=== PATIENT | male | born 1965 | race Caucasian/White ===

== ENCOUNTER 2019-07-23 09:45 | Observation (INO) ==
[2019-07-23] MEDS ORDERED: Gadolinium Contrast Agent (WT Based) IV PRN (11:04)
[2019-07-23 11:20] LABS: Bilirubin,Urine Negative (Negative); Blood,Urine Moderate (Negative); Clarity,Urine Cloudy (Clear); Color,Urine Yellow (Yellow); Glucose,Urine (UA) Normal (Normal); Ketones,Urine Negative (Negative); Leukocyte Esterase,Urine Large (Negative); Nitrite,Urine Negative (Negative); Protein,Urine 30 mg/dL (Neg-Trace); Specific Gravity,Urine 1.011 (1.010-1.025); Urobilinogen,Urine Normal (Normal)
[2019-07-23 11:23] LABS: Bacteria,Urine Few per hpf (None-Few); Hyaline Casts,Urine None Seen per lpf (None-Few); Squamous Epithelial Cell,Urine Few per lpf (None-Few); WBC,Urine TNTC per hpf (0-3)
[2019-07-23 11:31] LABS: Hematocrit 32.9 % (37.5-50.1); Hemoglobin 10.8 g/dL (12.9-16.9); Mean Corpuscular HGB Conc 32.8 g/dL (31.6-35.5); Mean Corpuscular Hemoglobin 30.4 pg (28.0-33.3); Mean Corpuscular Volume 92.7 fL (83.0-100.0); Mean Platelet Volume 9.5 fL (9.4-12.4); Platelet Count 264 K/mcL (140-400); Red Blood Count 3.55 M/mcL (4.19-5.50); Red Cell Distribution Width 14.6 % (11.5-14.5); White Blood Count 10.9 K/mcL (4.3-11.1)
[2019-07-23 12:08] LABS: Albumin 3.7 g/dL (3.5-5.7); Bilirubin,Direct 0.1 mg/dL (0.0-0.2); Bilirubin,Indirect 0.2 mg/dL (0.0-1.0); Bilirubin,Total 0.3 mg/dL (0.3-1.0); Globulin 3.6 g/dL (2.4-3.5); Total Protein 7.3 g/dL (6.4-8.9)
[2019-07-23] MEDS ORDERED: cefTRIAXone 2,000 MG in 0.9 % Sodium Chloride Mini Bag 100 ML IVPB ONE (12:11)
[2019-07-23] MEDS ORDERED: 0.9 % Sodium Chloride 2,000 ML ONE (12:56)
[2019-07-23] MEDS: 0.9 % Sodium Chloride 1,000 ML IVC SCH ×3 (13:48→16:59)
[2019-07-23] MEDS ORDERED: Naloxone 0.4 MG/ML INJ IVP PRN (15:29)
[2019-07-23] MEDS ORDERED: Ondansetron 4 MG/2 ML VIAL IVP PRN (15:29)
[2019-07-23 15:56] LABS: INR 1.1; Prothrombin Time 12.5 Seconds (9.4-12.1)
[2019-07-23] MEDS ORDERED: Acetaminophen 325 MG TABLET PO ONE (17:52)
[2019-07-23] MEDS ORDERED: TAZOBACTAM IVPB SCH (18:00)
[2019-07-23] MEDS ORDERED: PIPERACILLIN IVPB SCH (18:00)
[2019-07-23] MEDS ORDERED: SODIUM CHLORIDE 0.9% IVPB SCH (18:00)
[2019-07-23] MEDS ORDERED: *HR* OxyCODONE Immed Rel 5 MG TABLET PO PRN (20:31)
[2019-07-23] MEDS ORDERED: *HR* HYDROmorphone (PF) 1 MG/ML SYRINGE IVP ONE (20:38)
[2019-07-23] MEDS ORDERED: Acetaminophen 325 MG TABLET PO PRN (20:40)
[2019-07-23 21:31] LABS: Amphetamine Screen,Urine Positive ng/mL (Cutoff=1000); Barbiturate Screen,Urine Negative ng/mL (Cutoff=200); Benzodiazepines Screen,Urine Negative ng/mL (Cutoff=200); Cannabinoid Screen,Urine Negative ng/mL (Cutoff = 50); Cocaine Screen,Urine Negative ng/mL (Cutoff= 300); Opiate Screen,Urine Negative ng/mL (Cutoff=300); Phencyclidine Screen,Urine Negative ng/mL (Cutoff=25)
[2019-07-24] MEDS: 0.9 % Sodium Chloride 1,000 ML IVC SCH (03:00)
[2019-07-24 04:35] LABS: Basophils % 0.3 %; Eosinophils # 0.3 K/mcL (0.0-0.6); Eosinophils % 2.7 %; Hematocrit 33.9 % (37.5-50.1); Immature Granulocytes % 0.2 % (0-4); Lymphocytes # 1.8 K/mcL (0.6-4.6); Lymphocytes % 19.8 %; Mean Corpuscular HGB Conc 32.4 g/dL (31.6-35.5); Mean Corpuscular Volume 92.4 fL (83.0-100.0); Mean Platelet Volume 9.8 fL (9.4-12.4); Monocytes # 1.3 K/mcL (0.0-1.3); Neutrophils # 5.8 K/mcL (1.6-8.9); Platelet Count 271 K/mcL (140-400); Red Blood Count 3.67 M/mcL (4.19-5.50); Red Cell Distribution Width 14.8 % (11.5-14.5); White Blood Count 9.2 K/mcL (4.3-11.1)
[2019-07-24 04:55] LABS: BUN/Creatinine Ratio 16 (6-26); Blood Urea Nitrogen 22 mg/dL (6-20); Calcium 8.4 mg/dL (8.6-10.3); Carbon Dioxide 26 mEq/L (23-29); Chloride 111 mEq/L (98-107); Glucose 76 mg/dL (70-105); Osmolality,Calculated 298 (280-300); Potassium 4.2 mEq/L (3.5-5.1); Sodium 143 mEq/L (136-145); eGFR For African Americans > 60 (> 60); eGFR For Non-African Americans 55 (> 60)
[2019-07-24] MEDS ORDERED: Nicotine 21 MG PATCH.TD24 TD SCH (10:30)
[2019-07-24 11:52] VITALS: BP 126/73
[2019-07-24] MEDS ORDERED: 0.9 % Sodium Chloride 1,000 ML IVC SCH (12:45)
== END 2019-07-24 15:22 | disposition left against medical advice (07) ==
LOC: EMEROOARM 09:45 → 2ANU 09:45 → SUATTDRO 15:29 → 2ANU 16:04
PROVIDERS: ADMIT Internal Medicine; ATTEND Internal Medicine

== ENCOUNTER 2019-08-10 22:13 | Observation (INO) ==
[2019-08-10] MEDS ORDERED: Isovue-370 500 ML BOTTLE IVP ONE (22:26)
[2019-08-10 23:04] LABS: Basophils % 0.2 %; Eosinophils # 0.2 K/mcL (0.0-0.6); Eosinophils % 1.7 %; Hematocrit 34.7 % (37.5-50.1); Hemoglobin 11.4 g/dL (12.9-16.9); Immature Granulocytes % 0.3 % (0-4); Lymphocytes # 1.3 K/mcL (0.6-4.6); Mean Corpuscular HGB Conc 32.9 g/dL (31.6-35.5); Mean Corpuscular Hemoglobin 29.8 pg (28.0-33.3); Mean Corpuscular Volume 90.8 fL (83.0-100.0); Mean Platelet Volume 9.5 fL (9.4-12.4); Monocytes # 1.3 K/mcL (0.0-1.3); Monocytes % 11.5 %; Neutrophils # 8.7 K/mcL (1.6-8.9); Platelet Count 282 K/mcL (140-400); Red Blood Count 3.82 M/mcL (4.19-5.50); Red Cell Distribution Width 14.5 % (11.5-14.5); Segmented Neutrophils % 75.3 %; White Blood Count 11.5 K/mcL (4.3-11.1)
[2019-08-10 23:21] LABS: Albumin 3.8 g/dL (3.5-5.7); Bilirubin,Direct 0.1 mg/dL (0.0-0.2); Bilirubin,Indirect 0.3 mg/dL (0.0-1.0); Bilirubin,Total 0.4 mg/dL (0.3-1.0); Calcium 8.8 mg/dL (8.6-10.3); Globulin 3.8 g/dL (2.4-3.5); Potassium 4.1 mEq/L (3.5-5.1); Total Protein 7.6 g/dL (6.4-8.9)
[2019-08-11 00:56] LABS: Bilirubin,Urine Negative (Negative); Blood,Urine Small (Negative); Clarity,Urine Cloudy (Clear); Color,Urine Dark Yellow (Yellow); Glucose,Urine (UA) Normal (Normal); Ketones,Urine Negative (Negative); Leukocyte Esterase,Urine Large (Negative); Nitrite,Urine Positive (Negative); Protein,Urine Negative (Neg-Trace); Urobilinogen,Urine Normal (Normal)
[2019-08-11 00:59] LABS: Bacteria,Urine None Seen per hpf (None-Few); Hyaline Casts,Urine None Seen per lpf (None-Few); Squamous Epithelial Cell,Urine Many per lpf (None-Few); WBC,Urine 30-50 per hpf (0-3)
[2019-08-11] MEDS ORDERED: Acetaminophen 325 MG TABLET PO PRN (02:29)
[2019-08-11] MEDS ORDERED: Naloxone 0.4 MG/ML INJ IVP PRN (02:29)
[2019-08-11] MEDS ORDERED: Ondansetron 4 MG/2 ML VIAL IVP PRN (02:29)
[2019-08-11] MEDS ORDERED: 0.9 % Sodium Chloride 1,000 ML IVC SCH (03:45)
[2019-08-11 04:01] LABS: Basophils % 0.4 %; Eosinophils # 0.3 K/mcL (0.0-0.6); Eosinophils % 3.2 %; Hematocrit 34.7 % (37.5-50.1); Hemoglobin 11.9 g/dL (12.9-16.9); Immature Granulocytes % 0.2 % (0-4); Lymphocytes # 1.7 K/mcL (0.6-4.6); Lymphocytes % 17.1 %; Mean Corpuscular HGB Conc 34.3 g/dL (31.6-35.5); Mean Corpuscular Hemoglobin 31.3 pg (28.0-33.3); Mean Corpuscular Volume 91.3 fL (83.0-100.0); Mean Platelet Volume 9.4 fL (9.4-12.4); Monocytes # 1.6 K/mcL (0.0-1.3); Monocytes % 15.6 %; Neutrophils # 6.5 K/mcL (1.6-8.9); Platelet Count 260 K/mcL (140-400); Red Cell Distribution Width 14.6 % (11.5-14.5); Segmented Neutrophils % 63.5 %; White Blood Count 10.2 K/mcL (4.3-11.1)
[2019-08-11 04:08] LABS: Magnesium 2.7 mg/dL (1.6-2.6)
[2019-08-11] MEDS ORDERED: Ringers Solution, Lactated 1,000 ML IVC ONE (07:30)
[2019-08-11] MEDS: cefTRIAXone 2,000 MG in Water for inj. (sterile) 20 ML IVP SCH (08:12)
[2019-08-11] MEDS ORDERED: cefTRIAXone 1,000 MG in 0.9 % Sodium Chloride Mini Bag 100 ML IVPB SCH (09:00)
[2019-08-11] MEDS: polyethylene glycoL 3350 17 GM POWD.PACK PO SCH ×2 (10:50→21:25)
[2019-08-12 02:37] LABS: Hematocrit 34.7 % (37.5-50.1); Hemoglobin 11.4 g/dL (12.9-16.9); Mean Corpuscular HGB Conc 32.9 g/dL (31.6-35.5); Mean Corpuscular Hemoglobin 29.8 pg (28.0-33.3); Mean Corpuscular Volume 90.8 fL (83.0-100.0); Mean Platelet Volume 9.8 fL (9.4-12.4); Platelet Count 282 K/mcL (140-400); Red Blood Count 3.82 M/mcL (4.19-5.50); Red Cell Distribution Width 14.3 % (11.5-14.5); White Blood Count 6.1 K/mcL (4.3-11.1)
[2019-08-12 02:57] LABS: Calcium 8.5 mg/dL (8.6-10.3); Potassium 4.6 mEq/L (3.5-5.1)
[2019-08-12] MEDS: cefTRIAXone 2,000 MG in Water for inj. (sterile) 20 ML IVP SCH (08:38)
[2019-08-12] MEDS: polyethylene glycoL 3350 17 GM POWD.PACK PO SCH (08:41)
[2019-08-12] MEDS ORDERED: *HR* Buprenorphine HCl 8 MG TAB.SUBL SL SCH (09:00)
[2019-08-12 10:30] VITALS: BP 151/82
[2019-08-12 20:30] LABS: Barbiturates NEGATIVE ng/mL (Cutoff 75); Benzodiazepines NEGATIVE ng/mL (Cutoff 75); Cocaine NEGATIVE ng/mL (Cutoff 30); Methadone NEGATIVE ng/mL (Cutoff 40); Opiates NEGATIVE ng/mL (Cutoff 30); Phencyclidine NEGATIVE ng/mL (Cutoff 15)
[2019-08-13 10:17] LABS: Amphetamines POSITIVE ng/mL (Cutoff 30); Buprenorphine POSITIVE ng/mL (Cutoff 1); Methamphetamines POSITIVE ng/mL (Cutoff 30)
[2019-08-15 07:34] LABS: Buprenorphine <1.0 ng/mL
[2019-08-18 00:35] LABS: Methylenedioxyamphetamine <20 ng/mL; Methylenedioxymethamphetamine <20 ng/mL
[2019-08-18 06:52] LABS: Methamphetamine Confirmation 788 ng/mL; Methylenedioxyethylamphetamine <20 ng/mL
== END 2019-08-12 12:02 | disposition home or self-care (01) ==
LOC: EMEROOARM 22:13 → 2ANU 22:13
PROVIDERS: ADMIT Internal Medicine; ATTEND Internal Medicine

== ENCOUNTER 2019-09-05 17:26 | Observation (INO) ==
[2019-09-05 18:52] LABS: Bilirubin,Urine Negative (Negative); Blood,Urine Moderate (Negative); Clarity,Urine Cloudy (Clear); Color,Urine Yellow (Yellow); Glucose,Urine (UA) Normal (Normal); Ketones,Urine Negative (Negative); Leukocyte Esterase,Urine Large (Negative); Nitrite,Urine Negative (Negative); Protein,Urine Trace mg/dL (Neg-Trace); Urobilinogen,Urine Normal (Normal)
[2019-09-05 18:55] LABS: Bacteria,Urine None Seen per hpf (None-Few); Hyaline Casts,Urine None Seen per lpf (None-Few); Squamous Epithelial Cell,Urine Few per lpf (None-Few); WBC,Urine TNTC per hpf (0-3)
[2019-09-05 19:18] LABS: Albumin 3.6 g/dL (3.5-5.7); Bilirubin,Direct 0.1 mg/dL (0.0-0.2); Bilirubin,Indirect 0.2 mg/dL (0.0-1.0); Bilirubin,Total 0.3 mg/dL (0.3-1.0); Calcium 7.8 mg/dL (8.6-10.3); Globulin 3.7 g/dL (2.4-3.5); Potassium 7.5 mEq/L (3.5-5.1); Total Protein 7.3 g/dL (6.4-8.9)
[2019-09-05] MEDS ORDERED: *HR* Dextrose 50 % in Water (Syg) 50 ML SYRINGE IVP ONE (19:25)
[2019-09-05] MEDS ORDERED: Sodium Bicarbonate 50 MEQ/50 ML VIAL IVP ONE (19:25)
[2019-09-05] MEDS ORDERED: Insulin Human Regular 10 UNIT in 0.9 % Sodium Chloride 10 ML IV ONE (19:25)
[2019-09-05] MEDS ORDERED: Calcium Gluconate 1gm/50mL 1 GM/50 ML BAG IVPB PRN (19:27)
[2019-09-05] MEDS ORDERED: 0.9 % Sodium Chloride 1,000 ML IVC ONE (19:29)
[2019-09-05 20:10] LABS: Hematocrit 30.2 % (37.5-50.1); Mean Corpuscular HGB Conc 33.1 g/dL (31.6-35.5); Mean Corpuscular Hemoglobin 30.3 pg (28.0-33.3); Mean Corpuscular Volume 91.5 fL (83.0-100.0); Mean Platelet Volume 9.9 fL (9.4-12.4); Platelet Count 252 K/mcL (140-400); Red Cell Distribution Width 14.1 % (11.5-14.5); White Blood Count 12.4 K/mcL (4.3-11.1)
[2019-09-05] MEDS ORDERED: Naloxone 0.4 MG/ML INJ IVP PRN (21:48)
[2019-09-05] MEDS ORDERED: Dextrose Gel 15 GM/37.5 ML TUBE PO ONE (21:50)
[2019-09-05] MEDS ORDERED: 0.9 % Sodium Chloride 1,000 ML IVC SCH (22:00)
[2019-09-05] MEDS: SODIUM ZIRCONIUM CYCLOSILICATE 5 GM POWD.PACK PO SCH (22:05)
[2019-09-05] MEDS: Nicotine 21 MG PATCH.TD24 TD SCH (22:06)
[2019-09-05 22:12] LABS: Calcium 7.9 mg/dL (8.6-10.3); Potassium 5.8 mEq/L (3.5-5.1)
[2019-09-05 22:18] LABS: INR 1.3; Prothrombin Time 14.4 Seconds (9.4-12.1)
[2019-09-05 22:25] LABS: Sodium, Urine 73.2 mEq/L
[2019-09-05] MEDS: amLODIPine 5 MG TABLET PO SCH (22:31)
[2019-09-05] MEDS ORDERED: Ketorolac 15 MG/ML VIAL IVP ONE (23:08)
[2019-09-05] MEDS ORDERED: Acetaminophen 325 MG TABLET PO PRN (23:48)
[2019-09-06] MEDS ORDERED: levoFLOXacin 500 MG TABLET PO SCH (00:15)
[2019-09-06 00:33] LABS: Protein/Creatinine Ratio,Urine 0.59 mg/mg (0.00-0.20)
[2019-09-06] MEDS ORDERED: Doxycycline 200 MG in 0.9 % Sodium Chloride 100 ML IVPB ONE (00:43)
[2019-09-06 02:33] LABS: Bilirubin,Urine Negative (Negative); Blood,Urine Moderate (Negative); Clarity,Urine Clear (Clear); Color,Urine Yellow (Yellow); Glucose,Urine (UA) Normal (Normal); Ketones,Urine Negative (Negative); Leukocyte Esterase,Urine Moderate (Negative); Nitrite,Urine Negative (Negative); Protein,Urine Trace mg/dL (Neg-Trace); Urobilinogen,Urine Normal (Normal)
[2019-09-06 02:36] LABS: Bacteria,Urine None Seen per hpf (None-Few); Hyaline Casts,Urine None Seen per lpf (None-Few); RBC,Urine 15-30 per hpf (0-3); Squamous Epithelial Cell,Urine Many per lpf (None-Few); WBC,Urine 30-50 per hpf (0-3)
[2019-09-06 03:25] LABS: Basophils % 0.2 %; Eosinophils # 0.1 K/mcL (0.0-0.6); Hematocrit 27.5 % (37.5-50.1); Immature Granulocytes % 0.3 % (0-4); Lymphocytes % 7.8 %; Mean Corpuscular HGB Conc 32.7 g/dL (31.6-35.5); Mean Corpuscular Hemoglobin 29.9 pg (28.0-33.3); Mean Corpuscular Volume 91.4 fL (83.0-100.0); Monocytes # 0.5 K/mcL (0.0-1.3); Monocytes % 4.2 %; Neutrophils # 10.5 K/mcL (1.6-8.9); Platelet Count 251 K/mcL (140-400); Red Blood Count 3.01 M/mcL (4.19-5.50); Red Cell Distribution Width 14.2 % (11.5-14.5); Segmented Neutrophils % 86.5 %; White Blood Count 12.1 K/mcL (4.3-11.1)
[2019-09-06 03:37] LABS: Calcium 7.7 mg/dL (8.6-10.3); Potassium 6.5 mEq/L (3.5-5.1)
[2019-09-06 04:01] LABS: Chlamydia Trachomatis DNA Ur NOT DETECTED (Not Detect)
[2019-09-06] MEDS ORDERED: Calcium Gluconate 1gm/50mL 1 GM/50 ML BAG IVPB ONE (04:03)
[2019-09-06] MEDS ORDERED: Insulin Human Regular 5 UNIT in 0.9 % Sodium Chloride 10 ML IV ONE (04:03)
[2019-09-06] MEDS ORDERED: *HR* Dextrose 50 % in Water (Syg) 50 ML SYRINGE IVP ONE (04:03)
[2019-09-06] MEDS ORDERED: Doxycycline 100 MG CAPSULE PO SCH (09:00)
[2019-09-06 09:02] LABS: Calcium 8.3 mg/dL (8.6-10.3); Potassium 5.2 mEq/L (3.5-5.1)
[2019-09-06] MEDS: SODIUM ZIRCONIUM CYCLOSILICATE 5 GM POWD.PACK PO SCH (09:15)
[2019-09-06] MEDS: amLODIPine 5 MG TABLET PO SCH (09:15)
[2019-09-06] MEDS: Nicotine 21 MG PATCH.TD24 TD SCH (09:15)
[2019-09-06] MEDS: polyethylene glycoL 3350 17 GM POWD.PACK PO SCH (09:15)
[2019-09-06] MEDS: cefTRIAXone 2,000 MG in 0.9 % Sodium Chloride Mini Bag 100 ML IVPB SCH (09:15)
[2019-09-06] MEDS: *HR* Promethazine 25 MG/ML VIAL IVP PRN ×2 (09:56→19:28)
[2019-09-06] MEDS ORDERED: 0.9 % Sodium Chloride 1,000 ML IVC SCH (10:27)
[2019-09-06] MEDS: 0.9 % Sodium Chloride 1,000 ML IVC SCH ×2 (11:12→18:43)
[2019-09-06 13:05] LABS: Calcium 8.4 mg/dL (8.6-10.3); Potassium 5.4 mEq/L (3.5-5.1)
[2019-09-06 17:09] LABS: Calcium 8.3 mg/dL (8.6-10.3); Potassium 4.9 mEq/L (3.5-5.1)
[2019-09-06 22:15] LABS: Calcium 8.1 mg/dL (8.6-10.3)
[2019-09-07 01:11] LABS: Basophils % 0.3 %; Eosinophils # 0.3 K/mcL (0.0-0.6); Hematocrit 30.9 % (37.5-50.1); Immature Granulocytes % 0.3 % (0-4); Lymphocytes # 1.3 K/mcL (0.6-4.6); Lymphocytes % 15.5 %; Mean Corpuscular HGB Conc 32.4 g/dL (31.6-35.5); Mean Corpuscular Hemoglobin 29.5 pg (28.0-33.3); Mean Corpuscular Volume 91.2 fL (83.0-100.0); Mean Platelet Volume 9.7 fL (9.4-12.4); Monocytes # 0.8 K/mcL (0.0-1.3); Monocytes % 9.2 %; Neutrophils # 6.2 K/mcL (1.6-8.9); Platelet Count 282 K/mcL (140-400); Red Blood Count 3.39 M/mcL (4.19-5.50); Red Cell Distribution Width 14.2 % (11.5-14.5); Segmented Neutrophils % 71.7 %; White Blood Count 8.7 K/mcL (4.3-11.1)
[2019-09-07 01:31] LABS: Calcium 7.9 mg/dL (8.6-10.3); Potassium 4.3 mEq/L (3.5-5.1)
[2019-09-07 01:32] LABS: Uric Acid 3.9 mg/dL (2.3-7.6)
[2019-09-07] MEDS: 0.9 % Sodium Chloride 1,000 ML IVC SCH ×3 (03:00→11:33)
[2019-09-07] MEDS: polyethylene glycoL 3350 17 GM POWD.PACK PO SCH (08:20)
[2019-09-07] MEDS: SODIUM ZIRCONIUM CYCLOSILICATE 5 GM POWD.PACK PO SCH (08:20)
[2019-09-07] MEDS: Nicotine 21 MG PATCH.TD24 TD SCH (08:20)
[2019-09-07] MEDS: amLODIPine 5 MG TABLET PO SCH (08:20)
[2019-09-07] MEDS: cefTRIAXone 2,000 MG in 0.9 % Sodium Chloride Mini Bag 100 ML IVPB SCH (08:21)
[2019-09-07] MEDS: *HR* Promethazine 25 MG/ML VIAL IVP PRN (10:34)
[2019-09-07 12:20] VITALS: BP 168/107
[2019-09-07 17:32] LABS: HIV-1 Ab Supplemental NEGATIVE (Negative); HIV-2 Ab Supplemental NEGATIVE (Negative)
[2019-09-08] MEDS ORDERED: amLODIPine 5 MG TABLET PO SCH (09:00)
== END 2019-09-07 12:57 | disposition left against medical advice (07) ==
LOC: EMEROOARM 17:26 → 2ANU 17:26 → SUATTDRO 20:24 → 2ANU 20:55
PROVIDERS: ADMIT Internal Medicine; ATTEND Internal Medicine

== ENCOUNTER 2019-09-23 18:17 | Inpatient (IN) ==
[2019-09-23] MEDS ORDERED: Isovue-370 500 ML BOTTLE IVP ONE (18:26)
[2019-09-23 18:53] LABS: INR 1.1; Prothrombin Time 12.7 Seconds (9.4-12.1)
[2019-09-23 18:56] LABS: Activated Partial Thrombo Time 31.5 Seconds (26.0-36.0)
[2019-09-23 18:57] LABS: Basophils % 0.1 %; Eosinophils # 0.1 K/mcL (0.0-0.6); Eosinophils % 0.4 %; Hematocrit 29.6 % (37.5-50.1); Hemoglobin 9.9 g/dL (12.9-16.9); Immature Granulocytes % 0.4 % (0-4); Lymphocytes # 0.6 K/mcL (0.6-4.6); Lymphocytes % 5.1 %; Mean Corpuscular HGB Conc 33.4 g/dL (31.6-35.5); Mean Corpuscular Hemoglobin 30.3 pg (28.0-33.3); Mean Corpuscular Volume 90.5 fL (83.0-100.0); Mean Platelet Volume 9.7 fL (9.4-12.4); Monocytes # 1.1 K/mcL (0.0-1.3); Monocytes % 9.8 %; Neutrophils # 9.6 K/mcL (1.6-8.9); Platelet Count 245 K/mcL (140-400); Red Blood Count 3.27 M/mcL (4.19-5.50); Red Cell Distribution Width 13.8 % (11.5-14.5); Segmented Neutrophils % 84.2 %; White Blood Count 11.4 K/mcL (4.3-11.1)
[2019-09-23 19:59] LABS: Amphetamine Screen,Urine Negative ng/mL (Cutoff=1000); Barbiturate Screen,Urine Negative ng/mL (Cutoff=200); Benzodiazepines Screen,Urine Negative ng/mL (Cutoff=200); Cannabinoid Screen,Urine Negative ng/mL (Cutoff = 50); Cocaine Screen,Urine Negative ng/mL (Cutoff= 300); Opiate Screen,Urine Positive ng/mL (Cutoff=300); Phencyclidine Screen,Urine Negative ng/mL (Cutoff=25)
[2019-09-23] MEDS: Calcium Gluconate 1gm/50mL 1 GM/50 ML BAG IVPB SCH ×2 (19:59→20:57)
[2019-09-23 20:20] LABS: Alanine Aminotransferase 12 Units/L (7-52); Albumin 3.5 g/dL (3.5-5.7); Albumin/Globulin Ratio 0.9 (1.1-2.2); Alkaline Phosphatase 89 Units/L (34-104); Aspartate Amino Transferase 20 Units/L (13-39); BUN/Creatinine Ratio 11 (6-26); Bilirubin,Direct 0.1 mg/dL (0.0-0.2); Bilirubin,Indirect 0.2 mg/dL (0.0-1.0); Bilirubin,Total 0.3 mg/dL (0.3-1.0); Blood Urea Nitrogen 107 mg/dL (6-20); Calcium 7.9 mg/dL (8.6-10.3); Carbon Dioxide 16 mEq/L (23-29); Chloride 92 mEq/L (98-107); Globulin 3.9 g/dL (2.4-3.5); Glucose 87 mg/dL (70-105); Osmolality,Calculated 293 (280-300); Potassium 8.3 mEq/L (3.5-5.1); Sodium 125 mEq/L (136-145); Total Protein 7.4 g/dL (6.4-8.9); Troponin I < 0.03 ng/mL (< 0.04); eGFR For African Americans 7 (> 60); eGFR For Non-African Americans 6 (> 60)
[2019-09-23] MEDS ORDERED: 0.9 % Sodium Chloride 1,000 ML IVC ONE ×2 (20:25→22:34)
[2019-09-23] MEDS ORDERED: Sodium Bicarbonate 150 MEQ in D5% in Water 1,000 ML IVC SCH (20:30)
[2019-09-23] MEDS ORDERED: Sodium Bicarbonate 50 MEQ/50 ML VIAL IVP ONE (20:30)
[2019-09-23] MEDS ORDERED: Insulin Human Regular 10 UNIT in 0.9 % Sodium Chloride 10 ML IV ONE (20:30)
[2019-09-23] MEDS ORDERED: *HR* Dextrose 50 % in Water (Syg) 50 ML SYRINGE IVP ONE (20:30)
[2019-09-23] MEDS ORDERED: *HR* Dextrose 50 % in Water (Syg) 50 ML SYRINGE ONE (20:52)
[2019-09-23 20:59] LABS: Bilirubin,Urine Negative (Negative); Blood,Urine Large (Negative); Clarity,Urine Turbid (Clear); Color,Urine Yellow (Yellow); Glucose,Urine (UA) Normal (Normal); Ketones,Urine Negative (Negative); Leukocyte Esterase,Urine Large (Negative); Nitrite,Urine Negative (Negative); Protein,Urine 30 mg/dL (Neg-Trace); Specific Gravity,Urine 1.009 (1.010-1.025); Urobilinogen,Urine Normal (Normal)
[2019-09-23 21:01] LABS: Bacteria,Urine None Seen per hpf (None-Few); Hyaline Casts,Urine None Seen per lpf (None-Few); Squamous Epithelial Cell,Urine Few per lpf (None-Few); WBC,Urine TNTC per hpf (0-3)
[2019-09-23] MEDS ORDERED: Naloxone 0.4 MG/ML INJ IVP PRN (22:09)
[2019-09-23] MEDS ORDERED: cefTRIAXone 1,000 MG in Water for inj. (sterile) 10 ML IVP SCH (23:00)
[2019-09-23 23:29] LABS: C-Reactive Protein 154 mg/L (Less than 10); Creatine Kinase 175 Units/L (30-223)
[2019-09-24] MEDS ORDERED: Nicotine 14 MG PATCH.TD24 TD SCH (00:15)
[2019-09-24 00:42] LABS: Calcium 8.3 mg/dL (8.6-10.3); Magnesium 2.7 mg/dL (1.6-2.6); Potassium 6.4 mEq/L (3.5-5.1)
[2019-09-24 02:25] LABS: Basophils % 0.1 %; Eosinophils # 0.1 K/mcL (0.0-0.6); Eosinophils % 0.5 %; Hematocrit 30.3 % (37.5-50.1); Hemoglobin 9.9 g/dL (12.9-16.9); Immature Granulocytes % 0.3 % (0-4); Lymphocytes # 0.7 K/mcL (0.6-4.6); Lymphocytes % 6.5 %; Mean Corpuscular HGB Conc 32.7 g/dL (31.6-35.5); Mean Corpuscular Hemoglobin 30.2 pg (28.0-33.3); Mean Corpuscular Volume 92.4 fL (83.0-100.0); Mean Platelet Volume 10.2 fL (9.4-12.4); Monocytes # 1.3 K/mcL (0.0-1.3); Monocytes % 12.8 %; Neutrophils # 8.2 K/mcL (1.6-8.9); Platelet Count 246 K/mcL (140-400); Red Blood Count 3.28 M/mcL (4.19-5.50); Red Cell Distribution Width 13.9 % (11.5-14.5); Segmented Neutrophils % 79.8 %; White Blood Count 10.3 K/mcL (4.3-11.1)
[2019-09-24] MEDS ORDERED: *HR* OxyCODONE Immed Rel 5 MG TABLET PO PRN (02:45)
[2019-09-24] MEDS ORDERED: Acetaminophen 325 MG TABLET PO PRN ×2 (02:45→11:23)
[2019-09-24] MEDS ORDERED: *HR* HYDROcodone/Acet 5/325 mg TABLET PO PRN ×2 (02:45→11:23)
[2019-09-24 03:45] LABS: Albumin 3.2 g/dL (3.5-5.7); Albumin/Globulin Ratio 0.8 (1.1-2.2); Bilirubin,Indirect 0.3 mg/dL (0.0-1.0); Bilirubin,Total 0.3 mg/dL (0.3-1.0); Globulin 3.8 g/dL (2.4-3.5)
[2019-09-24 03:46] LABS: Calcium 8.1 mg/dL (8.6-10.3); Potassium 5.9 mEq/L (3.5-5.1)
[2019-09-24] MEDS ORDERED: *HR* Heparin 5,000 UNIT/ML VIAL SQ SCH ×2 (06:00→18:00)
[2019-09-24 06:20] LABS: Calcium 8.1 mg/dL (8.6-10.3); Potassium 5.3 mEq/L (3.5-5.1)
[2019-09-24] MEDS ORDERED: Sodium Bicarbonate 150 MEQ in D5% in Water 1,000 ML IVC SCH (06:45)
[2019-09-24 08:52] LABS: Magnesium 2.4 mg/dL (1.6-2.6); Phosphorous 8.5 mg/dL (2.7-4.5)
[2019-09-24 08:53] LABS: Calcium 7.9 mg/dL (8.6-10.3); Potassium 5.1 mEq/L (3.5-5.1)
[2019-09-24] MEDS ORDERED: 0.9 % Sodium Chloride 1,000 ML IVC SCH ×2 (09:15→11:23)
[2019-09-24 10:40] LABS: Calcium 8.1 mg/dL (8.6-10.3); Magnesium 2.4 mg/dL (1.6-2.6); Phosphorous 8.7 mg/dL (2.7-4.5); Potassium 4.8 mEq/L (3.5-5.1)
[2019-09-24] MEDS ORDERED: Naloxone 0.4 MG/ML INJ IVP PRN (11:23)
[2019-09-24] MEDS: *HR* OxyCODONE Immed Rel 5 MG TABLET PO PRN ×2 (11:48→17:47)
[2019-09-24 12:06] LABS: Potassium 4.8 mEq/L (3.5-5.1)
[2019-09-24 16:02] LABS: Potassium 4.4 mEq/L (3.5-5.1)
[2019-09-24 16:05] VITALS: BP 147/94
[2019-09-24] MEDS ORDERED: cefTRIAXone 1,000 MG in Water for inj. (sterile) 10 ML IVP SCH (23:00)
[2019-09-25] MEDS ORDERED: Nicotine 14 MG PATCH.TD24 TD SCH (00:15)
== END 2019-09-24 18:39 | disposition left against medical advice (07) | DRG 425 ==
LOC: EMEROOARM 18:17 → ICNU 18:17 → 2ANU 09-24 17:17
PROVIDERS: ADMIT Student in an Organized Health Care Education/Training Program; ATTEND Student in an Organized Health Care Education/Training Program

== ENCOUNTER 2019-11-23 11:02 | Inpatient (IN) ==
[2019-11-23] MEDS ORDERED: 0.9 % Sodium Chloride 2,000 ML ONE (11:13)
[2019-11-23 11:44] LABS: Hematocrit 32.9 % (37.5-50.1); Mean Corpuscular HGB Conc 30.4 g/dL (31.6-35.5); Mean Corpuscular Hemoglobin 29.6 pg (28.0-33.3); Mean Corpuscular Volume 97.3 fL (83.0-100.0); Mean Platelet Volume 9.7 fL (9.4-12.4); Monocytes # 0.1 K/mcL (0.0-1.3); Nucleated Red Blood Cells 0.3 /100 WBC (0); Platelet Count 193 K/mcL (140-400); Red Blood Count 3.38 M/mcL (4.19-5.50); Red Cell Distribution Width 15.7 % (11.5-14.5); White Blood Count 11.6 K/mcL (4.3-11.1)
[2019-11-23] MEDS: 0.9 % Sodium Chloride 1,000 ML IVC SCH ×2 (11:48→11:49)
[2019-11-23] MEDS ORDERED: cefTRIAXone 1,000 MG in Water for inj. (sterile) 10 ML IVP ONE (11:52)
[2019-11-23] MEDS ORDERED: Piperacillin/Tazobactam 3.375 GM in Water for inj. (sterile) 20 ML IVP ONE ×2 (11:52→12:22)
[2019-11-23 11:56] LABS: INR 2.2; Prothrombin Time 25.4 Seconds (9.4-12.1)
[2019-11-23 11:59] LABS: Activated Partial Thrombo Time 50.4 Seconds (26.0-36.0)
[2019-11-23] MEDS ORDERED: 0.9 % Sodium Chloride 1,000 ML IV ONE ×2 (12:02→13:33)
[2019-11-23 12:17] LABS: Albumin 2.9 g/dL (3.5-5.7); Albumin/Globulin Ratio 0.8 (1.1-2.2); Bilirubin,Direct 0.6 mg/dL (0.0-0.2); Bilirubin,Indirect 0.3 mg/dL (0.0-1.0); Bilirubin,Total 0.9 mg/dL (0.3-1.0); Calcium 8.4 mg/dL (8.6-10.3); Globulin 3.7 g/dL (2.4-3.5); Magnesium 1.9 mg/dL (1.6-2.6); Potassium 4.5 mEq/L (3.5-5.1); Total Protein 6.6 g/dL (6.4-8.9); Troponin I 0.11 ng/mL (< 0.04)
[2019-11-23 12:23] LABS: Basophils # 0.1 K/mcL (0.0-0.2); Lymphocytes # 0.2 K/mcL (0.6-4.6); Neutrophils # 10.1 K/mcL (1.6-8.9)
[2019-11-23 12:24] LABS: Platelet Estimate Normal (Normal)
[2019-11-23] MEDS ORDERED: Vancomycin 1,250 MG/262.5 ML IV.SOLN IVPB ONE (12:45)
[2019-11-23] MEDS ORDERED: Acetaminophen 325 MG TABLET PO PRN (15:32)
[2019-11-23] MEDS ORDERED: Naloxone 0.4 MG/ML INJ IVP PRN (15:32)
[2019-11-23] MEDS ORDERED: Perflutren Lipid Microsphere 1.3 ML in 0.9 % Sodium Chloride 8.7 ML IVP ONE (15:43)
[2019-11-23] MEDS ORDERED: Methadone Oral Concentrate 10 MG/ML PO SCH (15:45)
[2019-11-23 16:05] LABS: Bilirubin,Urine Negative (Negative); Blood,Urine Large (Negative); Clarity,Urine Ex.Turbid (Clear); Color,Urine Dark-Red (Yellow); Glucose,Urine (UA) Normal (Normal); Ketones,Urine Negative (Negative); Leukocyte Esterase,Urine Trace (Negative); Nitrite,Urine Positive (Negative); Protein,Urine >=300 mg/dL (Neg-Trace); Specific Gravity,Urine 1.014 (1.010-1.025); Urobilinogen,Urine Normal (Normal)
[2019-11-23] MEDS ORDERED: Ondansetron ODT 4 MG TAB.RAPDIS SL ONE (16:18)
[2019-11-23 16:19] LABS: Amphetamine Screen,Urine Negative ng/mL (Cutoff=1000); Barbiturate Screen,Urine Negative ng/mL (Cutoff=200); Benzodiazepines Screen,Urine Positive ng/mL (Cutoff=200); Cannabinoid Screen,Urine Negative ng/mL (Cutoff = 50); Cocaine Screen,Urine Negative ng/mL (Cutoff= 300); Opiate Screen,Urine Positive ng/mL (Cutoff=300); Phencyclidine Screen,Urine Negative ng/mL (Cutoff=25)
[2019-11-23] MEDS ORDERED: Methadone Oral Concentrate 50 MG/5 ML UDC PO SCH ×2 (17:00)
[2019-11-23] MEDS: Norepinephrine 4 MG/254 ML IV.SOLN IVC SCH (17:32)
[2019-11-23 17:57] LABS: VBG Ionized Calcium 0.97 mmol/L (1.15-1.35)
[2019-11-23 18:18] LABS: Albumin 2.4 g/dL (3.5-5.7); Albumin/Globulin Ratio 0.8 (1.1-2.2); Bilirubin,Total 0.5 mg/dL (0.3-1.0); Calcium 6.6 mg/dL (8.6-10.3); Globulin 3.1 g/dL (2.4-3.5); Magnesium 1.6 mg/dL (1.6-2.6); Potassium 4.7 mEq/L (3.5-5.1); Total Protein 5.5 g/dL (6.4-8.9)
[2019-11-23] MEDS: *HR* OxyCODONE Immed Rel 5 MG TABLET PO PRN (19:11)
[2019-11-23] MEDS: Piperacillin/Tazobactam 3.375 GM in 0.9 % Sodium Chloride Mini Bag 100 ML IVPB SCH (20:37)
[2019-11-23] MEDS: 0.9 % Sodium Chloride 1,000 ML IV ONE ×2 (22:34→23:24)
[2019-11-23] MEDS ORDERED: 0.9 % Sodium Chloride 500 ML IV ONE (23:15)
[2019-11-23] MEDS: Vasopressin 40 UNIT in D5% in Water 100 ML IVC SCH (23:15)
[2019-11-23] MEDS ORDERED: Ondansetron 4 MG/2 ML VIAL ONE (23:16)
[2019-11-23] MEDS ORDERED: Ondansetron 4 MG/2 ML VIAL IVP PRN (23:16)
[2019-11-23] MEDS ORDERED: *HR* Dextrose 50 % in Water (Vial) 50 ML VIAL ONE (23:27)
[2019-11-23] MEDS: *HR* Dextrose 50 % in Water (Vial) 50 ML VIAL IVP ONE ×2 (23:29→23:48)
[2019-11-23] MEDS ORDERED: D5% in 0.9% NACL 1,000 ML IVC SCH (23:30)
[2019-11-23] MEDS ORDERED: *HR* Dextrose 50 % in Water (Vial) 50 ML VIAL IVP ONE (23:46)
[2019-11-24 00:01] LABS: Acinetobacter baumannii by PCR Not Detected (Not Detect); Candida albicans by PCR Not Detected (Not Detect); Candida glabrata by PCR Not Detected (Not Detect); Candida krusei by PCR Not Detected (Not Detect); Candida parapsilosis by PCR Not Detected (Not Detect); Candida tropicalis by PCR Not Detected (Not Detect); Enterobacter cloacae Cmplx PCR Not Detected (Not Detect); Enterococcus by PCR Not Detected (Not Detect); Escherichia coli by PCR DETECTED (Not Detect); Klebsiella oxytoca by PCR Not Detected (Not Detect); Klebsiella pneumoniae by PCR Not Detected (Not Detect); Proteus by PCR Not Detected (Not Detect); Pseudomonas aeruginosa by PCR Not Detected (Not Detect); Serratia marcescens by PCR Not Detected (Not Detect); Staphylococcus aureus by PCR Not Detected (Not Detect); Staphylococcus by PCR Not Detected (Not Detect); Streptococcus agalactiae(B)PCR Not Detected (Not Detect); Streptococcus by PCR Not Detected (Not Detect); Streptococcus pneumoniae PCR Not Detected (Not Detect); Streptococcus pyogenes (A) PCR Not Detected (Not Detect); blaKPC Carbapenem-Resist Gene Not Detected (Not Detect); mecA Methicillin-Resist Gene Not Detected (Not Detect); vanA/B Vancomycin-Resist Genes Not Detected (Not Detect)
[2019-11-24] MEDS ORDERED: *HR* Dextrose 50 % in Water (Vial) 50 ML VIAL IVP ONE ×3 (02:08→12:16)
[2019-11-24] MEDS ORDERED: D10% in Water 500 ML IVC SCH (02:15)
[2019-11-24 04:09] LABS: INR 1.9; Prothrombin Time 21.9 Seconds (9.4-12.1)
[2019-11-24] MEDS: D10% in Water 500 ML IVC SCH ×3 (04:13→17:15)
[2019-11-24] MEDS: Norepinephrine 4 MG/254 ML IV.SOLN IVC SCH ×3 (04:24→17:12)
[2019-11-24 04:26] LABS: Albumin 2.6 g/dL (3.5-5.7); Albumin/Globulin Ratio 0.7 (1.1-2.2); Bilirubin,Direct 0.4 mg/dL (0.0-0.2); Bilirubin,Indirect 0.3 mg/dL (0.0-1.0); Bilirubin,Total 0.7 mg/dL (0.3-1.0); Calcium 6.6 mg/dL (8.6-10.3); Globulin 3.5 g/dL (2.4-3.5); Magnesium 1.6 mg/dL (1.6-2.6); Phosphorous 4.7 mg/dL (2.7-4.5); Potassium 5.6 mEq/L (3.5-5.1); Total Protein 6.1 g/dL (6.4-8.9)
[2019-11-24] MEDS: *HR* OxyCODONE Immed Rel 5 MG TABLET PO PRN ×2 (04:46→10:49)
[2019-11-24] MEDS: Piperacillin/Tazobactam 3.375 GM in 0.9 % Sodium Chloride Mini Bag 100 ML IVPB SCH (04:49)
[2019-11-24 05:03] LABS: Hematocrit 26.2 % (37.5-50.1); Immature Platelets 4.7 % (1.1-6.1); Mean Corpuscular HGB Conc 30.2 g/dL (31.6-35.5); Mean Corpuscular Hemoglobin 29.3 pg (28.0-33.3); Mean Platelet Volume 10.5 fL (9.4-12.4); Nucleated Red Blood Cells 0.1 /100 WBC (0); Red Cell Distribution Width 16.1 % (11.5-14.5)
[2019-11-24 05:04] LABS: Hemoglobin 7.9 g/dL (12.9-16.9); Platelet Count 88 K/mcL (140-400); White Blood Count 21.1 K/mcL (4.3-11.1)
[2019-11-24 05:55] LABS: Eosinophils # 0.4 K/mcL (0.0-0.6); Lymphocytes # 1.3 K/mcL (0.6-4.6); Monocytes # 0.8 K/mcL (0.0-1.3); Neutrophils # 17.7 K/mcL (1.6-8.9)
[2019-11-24 05:56] LABS: Hypochromasia Present (Not Present); Platelet Estimate Decreased (Normal)
[2019-11-24] MEDS: Vasopressin 40 UNIT in D5% in Water 100 ML IVC SCH ×2 (07:00→15:17)
[2019-11-24] MEDS ORDERED: Methadone Oral Concentrate 50 MG/5 ML UDC PO SCH (08:00)
[2019-11-24] MEDS ORDERED: SODIUM ZIRCONIUM CYCLOSILICATE 5 GM POWD.PACK PO ONE ×2 (08:14→14:30)
[2019-11-24] MEDS ORDERED: Potassium Phosphate 44 MEQ in 0.9 % Sodium Chloride 250 ML IVPB PRN (08:23)
[2019-11-24] MEDS ORDERED: Calcium Gluconate 1gm/50mL 1 GM/50 ML BAG IVPB PRN ×2 (08:23→14:55)
[2019-11-24] MEDS ORDERED: Potassium Chloride 40 MEQ/200 ML BAG IVPB PRN (08:23)
[2019-11-24] MEDS ORDERED: Potassium Chloride Elixir 20 MEQ/15 ML UDC PO ONE (08:24)
[2019-11-24] MEDS ORDERED: Furosemide 40 MG/4 ML VIAL IVP SCH (09:00)
[2019-11-24] MEDS ORDERED: Meropenem 1,000 MG in 0.9 % Sodium Chloride Mini Bag 100 ML IVPB SCH (09:00)
[2019-11-24] MEDS: Hydrocortisone Sodium Succ 100 MG/2 ML VIAL IVP SCH ×3 (09:37→20:17)
[2019-11-24] MEDS: Meropenem 1,000 MG in 0.9 % Sodium Chloride Mini Bag 100 ML IVPB SCH ×2 (10:49→23:42)
[2019-11-24] MEDS ORDERED: *HR* OxyCODONE Immed Rel 5 MG TABLET PO ONE (11:17)
[2019-11-24] MEDS: Dexmedetomidine HCl 400 MCG/100 ML MLS IVC SCH ×2 (11:23→19:15)
[2019-11-24] MEDS ORDERED: Sodium Bicarbonate 50 MEQ/50 ML VIAL IVP ONE ×2 (11:59→21:06)
[2019-11-24 12:47] LABS: ABG Base Excess -18 mEq/L (-2 to 3); ABG HCO3 9 mEq/L (21-27); ABG Oxygen Saturation 92 % (95-98); ABG PCO2 29 mmHg (35-45); ABG PH 7.13 pH Units (7.32-7.45); ABG PO2 83 mmHg (85-104); ABG TCO2 10 mEq/L (20-26)
[2019-11-24] MEDS ORDERED: Sodium Bicarbonate 50 MEQ/50 ML VIAL ONE (12:51)
[2019-11-24 12:53] LABS: Uric Acid 8.7 mg/dL (2.3-7.6)
[2019-11-24] MEDS ORDERED: ACETYLCYSTEINE IVC ONE (13:00)
[2019-11-24] MEDS ORDERED: D5 IVC ONE (13:00)
[2019-11-24] MEDS ORDERED: WATER IVC ONE (13:00)
[2019-11-24] MEDS ORDERED: Sodium Bicarbonate 150 MEQ in D5% in Water 1,000 ML IVC SCH (13:30)
[2019-11-24] MEDS ORDERED: Artificial Tears SOLN 15 ML BOTTLE BOTH EYES PRN (13:34)
[2019-11-24 13:42] LABS: VBG Ionized Calcium 0.91 mmol/L (1.15-1.35)
[2019-11-24] MEDS: Midazolam HCl 50 MG/100 ML IV.SOLN IVC SCH (13:48)
[2019-11-24] MEDS: FentaNYL (PF) 1,000 MCG/100 ML IV.SOLN IVC SCH (13:48)
[2019-11-24] MEDS ORDERED: Acetylcysteine 3,500 MG in D5% in Water 500 ML IVC SCH (14:00)
[2019-11-24 14:07] LABS: Albumin 2.5 g/dL (3.5-5.7); Albumin/Globulin Ratio 0.8 (1.1-2.2); Bilirubin,Total 0.8 mg/dL (0.3-1.0); Calcium 6.5 mg/dL (8.6-10.3); Globulin 3.1 g/dL (2.4-3.5); Magnesium 1.9 mg/dL (1.6-2.6); Phosphorous 7.4 mg/dL (2.7-4.5); Potassium 6.8 mEq/L (3.5-5.1); Total Protein 5.6 g/dL (6.4-8.9)
[2019-11-24] MEDS ORDERED: Calcium Chloride 2,000 MG in 0.9 % Sodium Chloride 100 ML IVPB ONE (14:45)
[2019-11-24 14:46] LABS: ABG Base Excess -12 mEq/L (-2 to 3); ABG HCO3 15 mEq/L (21-27); ABG Oxygen Saturation 96 % (95-98); ABG PCO2 38 mmHg (35-45); ABG PH 7.21 pH Units (7.32-7.45); ABG PO2 101 mmHg (85-104); ABG TCO2 16 mEq/L (20-26); Blood Gas VT 550 cc
[2019-11-24] MEDS ORDERED: Aminoglycoside Consult 1 EACH MC ONE (15:15)
[2019-11-24 15:32] LABS: Hepatitis B Surface Antigen Nonreactive (Nonreactive)
[2019-11-24] MEDS ORDERED: *HR* Heparin 5,000 UNIT/ML VIAL ONE (15:38)
[2019-11-24 16:01] LABS: Hepatitis B Core IgM Nonreactive (Nonreactive); Hepatitis C Virus Antibody Nonreactive (Nonreactive)
[2019-11-24 16:03] LABS: Hepatitis A Antibody IgM Nonreactive (Nonreactive)
[2019-11-24] MEDS ORDERED: *HR* Midazolam HCl 5 MG/5 ML VIAL IVP ONE (16:58)
[2019-11-24] MEDS ORDERED: *HR* Etomidate 20 MG/10 ML AMPUL IVP ONE (16:58)
[2019-11-24] MEDS ORDERED: *HR* Rocuronium Bromide 50 MG/5 ML VIAL IVP ONE (16:58)
[2019-11-24] MEDS: Artificial Tears SOLN 15 ML BOTTLE BOTH EYES SCH ×3 (17:15→23:43)
[2019-11-24] MEDS: PrismaSATE BGK 4/2.5 5,000 ML CRRT SCH ×4 (18:14→21:51)
[2019-11-24] MEDS: Calcium Chloride 4,000 MG in 0.9 % Sodium Chloride 1,000 ML CRRT SCH (18:15)
[2019-11-24] MEDS: 0.9 % Sodium Chloride 1,000 ML PRIME SCH ×5 (18:15→23:38)
[2019-11-24] MEDS: Acetylcysteine 10,000 MG in D5% in Water 1,000 ML IVC SCH (18:19)
[2019-11-24] MEDS: Budesonide/Formoterol 160/4.5 1 PUFF INH IH SCH (19:57)
[2019-11-24] MEDS: Chlorhexidine Rinse 15 ML MOUTHWASH MM SCH (20:17)
[2019-11-24 20:41] LABS: VBG HCO3 19 mEq/L (21-27); VBG PCO2 55 mmHg (41-51); VBG PH 7.14 pH Units (7.32-7.42); VBG PO2 94 mmHg (25-50)
[2019-11-24 20:47] LABS: Troponin I 0.6 ng/mL (< 0.04)
[2019-11-24 22:37] LABS: VBG Ionized Calcium 0.89 mmol/L (1.15-1.35)
[2019-11-24] MEDS: Calcium Gluconate 1gm/50mL 1 GM/50 ML BAG IVPB PRN (23:05)
[2019-11-24 23:16] LABS: ABG Base Excess -11 mEq/L (-2 to 3); ABG HCO3 16 mEq/L (21-27); ABG Oxygen Saturation 97 % (95-98); ABG PCO2 37 mmHg (35-45); ABG PH 7.24 pH Units (7.32-7.45); ABG PO2 105 mmHg (85-104); ABG TCO2 17 mEq/L (20-26); Blood Gas Modality ASSIST CONTROL; Blood Gas VT 650 cc
[2019-11-24 23:16] LABS: ABG Base Excess -7 mEq/L (-2 to 3); ABG HCO3 20 mEq/L (21-27); ABG Oxygen Saturation 100 % (95-98); ABG PCO2 46 mmHg (35-45); ABG PH 7.24 pH Units (7.32-7.45); ABG PO2 295 mmHg (85-104); ABG TCO2 21 mEq/L (20-26); Blood Gas Modality ASSIST CONTROL; Blood Gas VT 550 cc
[2019-11-25 00:41] LABS: Calcium 7.4 mg/dL (8.6-10.3); Magnesium 2.1 mg/dL (1.6-2.6); Phosphorous 5.9 mg/dL (2.7-4.5); Potassium 5.2 mEq/L (3.5-5.1)
[2019-11-25] MEDS: PrismaSATE BGK 4/2.5 5,000 ML CRRT SCH ×14 (01:17→22:00)
[2019-11-25] MEDS: Hydrocortisone Sodium Succ 100 MG/2 ML VIAL IVP SCH ×4 (01:41→20:29)
[2019-11-25 01:45] LABS: VBG Ionized Calcium 1.03 mmol/L (1.15-1.35)
[2019-11-25] MEDS: D10% in Water 500 ML IVC SCH ×3 (03:16→19:13)
[2019-11-25 04:19] LABS: Hematocrit 25.7 % (37.5-50.1); Hemoglobin 7.9 g/dL (12.9-16.9); Mean Corpuscular HGB Conc 30.7 g/dL (31.6-35.5); Nucleated Red Blood Cells 0.1 /100 WBC (0)
[2019-11-25 04:20] LABS: VBG Ionized Calcium 1.03 mmol/L (1.15-1.35)
[2019-11-25 04:21] LABS: Immature Platelets 12.7 % (1.1-6.1); Mean Corpuscular Hemoglobin 29.8 pg (28.0-33.3); Mean Platelet Volume 11.5 fL (9.4-12.4); Red Blood Count 2.65 M/mcL (4.19-5.50); White Blood Count 23.8 K/mcL (4.3-11.1)
[2019-11-25] MEDS: Artificial Tears SOLN 15 ML BOTTLE BOTH EYES SCH ×5 (04:22→20:29)
[2019-11-25 04:49] LABS: ABG Base Excess -6 mEq/L (-2 to 3); ABG HCO3 21 mEq/L (21-27); ABG Oxygen Saturation 97 % (95-98); ABG PCO2 46 mmHg (35-45); ABG PH 7.27 pH Units (7.32-7.45); ABG PO2 102 mmHg (85-104); ABG TCO2 22 mEq/L (20-26); Blood Gas Modality ASSIST CONTROL; Blood Gas VT 500 cc
[2019-11-25 05:13] LABS: Albumin 2.3 g/dL (3.5-5.7); Albumin/Globulin Ratio 0.8 (1.1-2.2); Bilirubin,Total 1.3 mg/dL (0.3-1.0); Calcium 7.1 mg/dL (8.6-10.3); Globulin 2.9 g/dL (2.4-3.5); Potassium 5.8 mEq/L (3.5-5.1); Total Protein 5.2 g/dL (6.4-8.9)
[2019-11-25 05:18] LABS: Albumin 2.3 g/dL (3.5-5.7); Albumin/Globulin Ratio 0.8 (1.1-2.2); Bilirubin,Indirect 0.4 mg/dL (0.0-1.0); Bilirubin,Total 1.4 mg/dL (0.3-1.0); Calcium 7.5 mg/dL (8.6-10.3); Globulin 2.9 g/dL (2.4-3.5); Phosphorous 5.5 mg/dL (2.7-4.5); Potassium 5.3 mEq/L (3.5-5.1); Total Protein 5.2 g/dL (6.4-8.9)
[2019-11-25 05:33] LABS: Platelet Count 26 K/mcL (140-400)
[2019-11-25 05:37] LABS: Monocytes # 0.5 K/mcL (0.0-1.3); Neutrophils # 20.9 K/mcL (1.6-8.9)
[2019-11-25 05:38] LABS: Anisocytosis 1+ (Not Present); Platelet Estimate Marked Decrease (Normal)
[2019-11-25 06:01] LABS: INR 3.2
[2019-11-25 06:17] LABS: VBG Ionized Calcium 1.06 mmol/L (1.15-1.35)
[2019-11-25] MEDS: Norepinephrine 4 MG/254 ML IV.SOLN IVC SCH (06:17)
[2019-11-25] MEDS: Budesonide/Formoterol 160/4.5 1 PUFF INH IH SCH ×2 (07:45→21:51)
[2019-11-25] MEDS: Chlorhexidine Rinse 15 ML MOUTHWASH MM SCH ×2 (08:20→20:29)
[2019-11-25] MEDS: Pantoprazole 40 MG VIAL IVP SCH (08:20)
[2019-11-25 08:26] LABS: VBG Ionized Calcium 1.11 mmol/L (1.15-1.35)
[2019-11-25 08:40] LABS: Activated Partial Thrombo Time 42.9 Seconds (26.0-36.0)
[2019-11-25 10:22] LABS: VBG Ionized Calcium 1.12 mmol/L (1.15-1.35)
[2019-11-25] MEDS: Calcium Chloride 4,000 MG in 0.9 % Sodium Chloride 1,000 ML CRRT SCH (11:00)
[2019-11-25] MEDS: FentaNYL (PF) 1,000 MCG/100 ML IV.SOLN IVC SCH ×2 (12:00→23:00)
[2019-11-25] MEDS: Meropenem 1,000 MG in 0.9 % Sodium Chloride Mini Bag 100 ML IVPB SCH (12:19)
[2019-11-25 12:23] LABS: VBG Ionized Calcium 1.13 mmol/L (1.15-1.35)
[2019-11-25] MEDS ORDERED: *HR* Metoprolol 5 MG/5 ML VIAL IVP ONE ×2 (13:52→14:05)
[2019-11-25] MEDS ORDERED: *HR* Metoprolol 5 MG/5 ML VIAL IVP PRN (14:27)
[2019-11-25] MEDS ORDERED: SODIUM ZIRCONIUM CYCLOSILICATE 5 GM POWD.PACK PO ONE (14:30)
[2019-11-25] MEDS: Acetylcysteine 10,000 MG in D5% in Water 1,000 ML IVC SCH (17:00)
[2019-11-25] MEDS: Midazolam HCl 50 MG/100 ML IV.SOLN IVC SCH (17:03)
[2019-11-25 18:49] LABS: VBG Ionized Calcium 1.21 mmol/L (1.15-1.35)
[2019-11-25 19:22] LABS: Alanine Aminotransferase 1976 Units/L (7-52); Albumin 2.3 g/dL (3.5-5.7); Albumin/Globulin Ratio 0.7 (1.1-2.2); Alkaline Phosphatase 91 Units/L (34-104); Aspartate Amino Transferase > 3000 Units/L (13-39); BUN/Creatinine Ratio 14 (6-26); Bilirubin,Total 1.3 mg/dL (0.3-1.0); Blood Urea Nitrogen 28 mg/dL (6-20); Calcium 8.1 mg/dL (8.6-10.3); Carbon Dioxide 22 mEq/L (23-29); Chloride 100 mEq/L (98-107); Globulin 3.1 g/dL (2.4-3.5); Glucose 76 mg/dL (70-105); Osmolality,Calculated 276 (280-300); Phosphorous 4.2 mg/dL (2.7-4.5); Potassium 5.8 mEq/L (3.5-5.1); Sodium 131 mEq/L (136-145); Total Protein 5.4 g/dL (6.4-8.9); eGFR For African Americans 43 (> 60); eGFR For Non-African Americans 36 (> 60)
[2019-11-25] MEDS: MetroNIDAZOLE 500 MG/100 ML 500 MG/100 ML BAG IVPB SCH (20:28)
[2019-11-25] MEDS: Cefepime HCl 2,000 MG in Water for inj. (sterile) 20 ML IVP SCH (21:54)
[2019-11-26] MEDS: D10% in Water 500 ML IVC SCH ×4 (00:05→20:44)
[2019-11-26] MEDS: Artificial Tears SOLN 15 ML BOTTLE BOTH EYES SCH ×6 (00:31→19:40)
[2019-11-26 00:37] LABS: VBG Ionized Calcium 1.21 mmol/L (1.15-1.35)
[2019-11-26] MEDS: Calcium Chloride 4,000 MG in 0.9 % Sodium Chloride 1,000 ML CRRT SCH ×2 (01:13→15:27)
[2019-11-26] MEDS: PrismaSATE BGK 4/2.5 5,000 ML CRRT SCH ×12 (01:36→20:30)
[2019-11-26] MEDS: MetroNIDAZOLE 500 MG/100 ML 500 MG/100 ML BAG IVPB SCH ×3 (03:19→22:04)
[2019-11-26] MEDS: Hydrocortisone Sodium Succ 100 MG/2 ML VIAL IVP SCH ×4 (03:19→19:41)
[2019-11-26 04:49] LABS: INR 2.6; Prothrombin Time 29.6 Seconds (9.4-12.1)
[2019-11-26 04:50] LABS: Hemoglobin 7.5 g/dL (12.9-16.9); Immature Platelets 18.5 % (1.1-6.1); Mean Corpuscular HGB Conc 31.3 g/dL (31.6-35.5); Mean Corpuscular Hemoglobin 29.5 pg (28.0-33.3); Mean Corpuscular Volume 94.5 fL (83.0-100.0); Mean Platelet Volume 12.3 fL (9.4-12.4); Red Blood Count 2.54 M/mcL (4.19-5.50)
[2019-11-26 04:52] LABS: Activated Partial Thrombo Time 39.7 Seconds (26.0-36.0); Platelet Count 23 K/mcL (140-400)
[2019-11-26 05:16] LABS: ABG Base Excess -2 mEq/L (-2 to 3); ABG HCO3 24 mEq/L (21-27); ABG Oxygen Saturation 95 % (95-98); ABG PCO2 43 mmHg (35-45); ABG PH 7.34 pH Units (7.32-7.45); ABG PO2 81 mmHg (85-104); ABG TCO2 25 mEq/L (20-26); Blood Gas Modality AF; Blood Gas VT 500 cc
[2019-11-26 05:24] LABS: Alanine Aminotransferase 2103 Units/L (7-52); Albumin 2.3 g/dL (3.5-5.7); Albumin/Globulin Ratio 0.8 (1.1-2.2); Alkaline Phosphatase 99 Units/L (34-104); Aspartate Amino Transferase > 3000 Units/L (13-39); BUN/Creatinine Ratio 15 (6-26); Bilirubin,Total 1.3 mg/dL (0.3-1.0); Blood Urea Nitrogen 20 mg/dL (6-20); Calcium 8.2 mg/dL (8.6-10.3); Carbon Dioxide 24 mEq/L (23-29); Chloride 101 mEq/L (98-107); Creatine Kinase 1435 Units/L (30-223); Glucose 129 mg/dL (70-105); Osmolality,Calculated 276 (280-300); Potassium 4.9 mEq/L (3.5-5.1); Sodium 131 mEq/L (136-145); Total Protein 5.3 g/dL (6.4-8.9); eGFR For African Americans > 60 (> 60); eGFR For Non-African Americans 55 (> 60)
[2019-11-26] MEDS: Cefepime HCl 2,000 MG in Water for inj. (sterile) 20 ML IVP SCH ×3 (06:13→22:03)
[2019-11-26 06:31] LABS: VBG Ionized Calcium 1.29 mmol/L (1.15-1.35)
[2019-11-26] MEDS: Budesonide/Formoterol 160/4.5 1 PUFF INH IH SCH ×2 (07:24→19:52)
[2019-11-26 08:17] LABS: Nucleated Red Blood Cells 0.1 /100 WBC (0)
[2019-11-26] MEDS: Pantoprazole 40 MG VIAL IVP SCH (08:21)
[2019-11-26] MEDS: Chlorhexidine Rinse 15 ML MOUTHWASH MM SCH ×2 (08:21→19:42)
[2019-11-26 08:53] LABS: Anisocytosis 1+ (Not Present); Lymphocytes # 1.6 K/mcL (0.6-4.6); Monocytes # 6.2 K/mcL (0.0-1.3); Neutrophils # 18.2 K/mcL (1.6-8.9); Platelet Estimate Marked Decrease (Normal)
[2019-11-26 09:32] LABS: INR 2.4; Prothrombin Time 27.1 Seconds (9.4-12.1)
[2019-11-26 09:35] LABS: Activated Partial Thrombo Time 38.7 Seconds (26.0-36.0)
[2019-11-26] MEDS: FentaNYL (PF) 1,000 MCG/100 ML IV.SOLN IVC SCH ×2 (10:10→18:00)
[2019-11-26 16:10] LABS: VBG Ionized Calcium 1.35 mmol/L (1.15-1.35)
[2019-11-26] MEDS: Acetylcysteine 10,000 MG in D5% in Water 1,000 ML IVC SCH (17:00)
[2019-11-26 18:37] LABS: VBG Ionized Calcium 1.37 mmol/L (1.15-1.35)
[2019-11-26] MEDS: Docusate Oral Soln 100 MG/10 ML UDC GTUBE SCH (19:42)
[2019-11-26 21:32] LABS: VBG Ionized Calcium 1.36 mmol/L (1.15-1.35)
[2019-11-26 23:31] LABS: VBG Ionized Calcium 1.33 mmol/L (1.15-1.35)
[2019-11-27] MEDS: Midazolam HCl 50 MG/100 ML IV.SOLN IVC SCH (00:12)
[2019-11-27] MEDS: Artificial Tears SOLN 15 ML BOTTLE BOTH EYES SCH ×6 (00:12→20:44)
[2019-11-27] MEDS: Dexmedetomidine HCl 400 MCG/100 ML MLS IVC SCH ×3 (00:13→06:56)
[2019-11-27] MEDS: Phenylephrine 10 MG in 0.9 % Sodium Chloride 250 ML IVC SCH (00:13)
[2019-11-27] MEDS: Vasopressin 40 UNIT in D5% in Water 100 ML IVC SCH ×2 (00:13→00:14)
[2019-11-27 01:29] LABS: VBG Ionized Calcium 1.38 mmol/L (1.15-1.35)
[2019-11-27] MEDS: FentaNYL (PF) 1,000 MCG/100 ML IV.SOLN IVC SCH ×4 (01:31→22:55)
[2019-11-27] MEDS: PrismaSATE BGK 4/2.5 5,000 ML CRRT SCH ×14 (03:06→21:39)
[2019-11-27] MEDS: D10% in Water 500 ML IVC SCH ×2 (03:53→19:16)
[2019-11-27 03:58] LABS: Hematocrit 21.6 % (37.5-50.1); Immature Platelets 18.9 % (1.1-6.1); Mean Corpuscular HGB Conc 32.4 g/dL (31.6-35.5); Mean Corpuscular Hemoglobin 30.7 pg (28.0-33.3); Mean Corpuscular Volume 94.7 fL (83.0-100.0); Mean Platelet Volume 11.7 fL (9.4-12.4); Red Blood Count 2.28 M/mcL (4.19-5.50); Red Cell Distribution Width 15.9 % (11.5-14.5)
[2019-11-27 04:02] LABS: INR 1.6; Prothrombin Time 18.2 Seconds (9.4-12.1)
[2019-11-27 04:04] LABS: Activated Partial Thrombo Time 36.4 Seconds (26.0-36.0)
[2019-11-27 04:07] LABS: White Blood Count 36.9 K/mcL (4.3-11.1)
[2019-11-27 04:08] LABS: VBG Ionized Calcium 1.31 mmol/L (1.15-1.35)
[2019-11-27 04:20] LABS: ABG Base Excess 0 mEq/L (-2 to 3); ABG HCO3 27 mEq/L (21-27); ABG Oxygen Saturation 34 % (95-98); ABG PCO2 56 mmHg (35-45); ABG PH 7.29 pH Units (7.32-7.45); ABG PO2 24 mmHg (85-104); ABG TCO2 29 mEq/L (20-26); Blood Gas Modality ASSIST CONTROL; Blood Gas VT 500 cc
[2019-11-27 04:27] LABS: ABG Base Excess 0 mEq/L (-2 to 3); ABG HCO3 26 mEq/L (21-27); ABG Oxygen Saturation 95 % (95-98); ABG PCO2 44 mmHg (35-45); ABG PH 7.37 pH Units (7.32-7.45); ABG PO2 77 mmHg (85-104); ABG TCO2 27 mEq/L (20-26); Blood Gas Modality ASSIST CONTROL; Blood Gas VT 500 cc
[2019-11-27 04:31] LABS: Alanine Aminotransferase 1524 Units/L (7-52); Albumin 2.2 g/dL (3.5-5.7); Albumin/Globulin Ratio 0.8 (1.1-2.2); Alkaline Phosphatase 151 Units/L (34-104); Aspartate Amino Transferase 1429 Units/L (13-39); BUN/Creatinine Ratio 17 (6-26); Bilirubin,Total 1.3 mg/dL (0.3-1.0); Blood Urea Nitrogen 19 mg/dL (6-20); Calcium 8.6 mg/dL (8.6-10.3); Carbon Dioxide 27 mEq/L (23-29); Chloride 102 mEq/L (98-107); Globulin 2.9 g/dL (2.4-3.5); Glucose 117 mg/dL (70-105); Osmolality,Calculated 277 (280-300); Potassium 4.5 mEq/L (3.5-5.1); Sodium 132 mEq/L (136-145); Total Protein 5.1 g/dL (6.4-8.9); eGFR For African Americans > 60 (> 60); eGFR For Non-African Americans > 60 (> 60)
[2019-11-27] MEDS: Norepinephrine 4 MG/254 ML IV.SOLN IVC SCH (05:10)
[2019-11-27] MEDS: Cefepime HCl 2,000 MG in Water for inj. (sterile) 20 ML IVP SCH ×3 (05:13→21:33)
[2019-11-27] MEDS: MetroNIDAZOLE 500 MG/100 ML 500 MG/100 ML BAG IVPB SCH ×3 (05:13→21:33)
[2019-11-27] MEDS: Hydrocortisone Sodium Succ 100 MG/2 ML VIAL IVP SCH ×3 (05:13→20:45)
[2019-11-27] MEDS: Calcium Chloride 4,000 MG in 0.9 % Sodium Chloride 1,000 ML CRRT SCH (06:53)
[2019-11-27] MEDS: Budesonide/Formoterol 160/4.5 1 PUFF INH IH SCH ×2 (07:34→19:56)
[2019-11-27] MEDS: Pantoprazole 40 MG VIAL IVP SCH (08:58)
[2019-11-27] MEDS: Docusate Oral Soln 100 MG/10 ML UDC GTUBE SCH ×2 (08:58→20:44)
[2019-11-27] MEDS: Chlorhexidine Rinse 15 ML MOUTHWASH MM SCH ×2 (08:58→20:44)
[2019-11-27 10:49] LABS: VBG Ionized Calcium 1.29 mmol/L (1.15-1.35)
[2019-11-27 10:50] LABS: INR 1.6; Prothrombin Time 17.8 Seconds (9.4-12.1)
[2019-11-27 10:53] LABS: Activated Partial Thrombo Time 35.4 Seconds (26.0-36.0)
[2019-11-27] MEDS ORDERED: 0.9 % Sodium Chloride 250 ML ONE (11:05)
[2019-11-27] MEDS ORDERED: *HR* Heparin 5,000 UNIT/ML VIAL ONE (11:21)
[2019-11-27] MEDS: *HR* Heparin 5,000 UNIT/ML VIAL IVP PRN (11:25)
[2019-11-27 16:40] LABS: Nucleated Red Blood Cells 0.6 /100 WBC (0)
[2019-11-27 16:42] LABS: Hematocrit 21.1 % (37.5-50.1); Immature Platelets 19.4 % (1.1-6.1); Mean Corpuscular HGB Conc 33.2 g/dL (31.6-35.5); Mean Corpuscular Hemoglobin 30.6 pg (28.0-33.3); Mean Corpuscular Volume 92.1 fL (83.0-100.0); Red Blood Count 2.29 M/mcL (4.19-5.50); Red Cell Distribution Width 16.1 % (11.5-14.5)
[2019-11-27 16:48] LABS: Platelet Count 29 K/mcL (140-400)
[2019-11-27 16:49] LABS: White Blood Count 36.3 K/mcL (4.3-11.1)
[2019-11-27 16:50] LABS: VBG Ionized Calcium 1.26 mmol/L (1.15-1.35)
[2019-11-27 17:20] LABS: Lymphocytes # 2.2 K/mcL (0.6-4.6); Monocytes # 3.6 K/mcL (0.0-1.3); Neutrophils # 30.1 K/mcL (1.6-8.9)
[2019-11-27 17:21] LABS: Platelet Estimate Decreased (Normal)
[2019-11-27 22:54] LABS: VBG Ionized Calcium 1.26 mmol/L (1.15-1.35)
[2019-11-27 23:01] LABS: INR 1.5; Prothrombin Time 16.5 Seconds (9.4-12.1)
[2019-11-28] MEDS: Phenylephrine 10 MG in 0.9 % Sodium Chloride 250 ML IVC SCH ×2 (00:05→07:14)
[2019-11-28] MEDS: Vasopressin 40 UNIT in D5% in Water 100 ML IVC SCH ×3 (00:31→16:46)
[2019-11-28] MEDS: Artificial Tears SOLN 15 ML BOTTLE BOTH EYES SCH ×7 (00:32→23:38)
[2019-11-28] MEDS: Midazolam HCl 50 MG/100 ML IV.SOLN IVC SCH ×3 (00:33→18:08)
[2019-11-28] MEDS: PrismaSATE BGK 4/2.5 5,000 ML CRRT SCH ×14 (01:14→20:31)
[2019-11-28 03:37] LABS: Creatinine,Urine 57 mg/dL; Microalbumin,Urine > 1350 mg/L; Protein/Creatinine Ratio,Urine 17.93 mg/mg (0.00-0.20)
[2019-11-28] MEDS: Calcium Chloride 4,000 MG in 0.9 % Sodium Chloride 1,000 ML CRRT SCH ×2 (04:38→22:09)
[2019-11-28] MEDS: D10% in Water 500 ML IVC SCH ×4 (04:38→13:22)
[2019-11-28 04:52] LABS: ABG Base Excess 3 mEq/L (-2 to 3); ABG HCO3 29 mEq/L (21-27); ABG Oxygen Saturation 79 % (95-98); ABG PCO2 54 mmHg (35-45); ABG PH 7.34 pH Units (7.32-7.45); ABG PO2 47 mmHg (85-104); ABG TCO2 31 mEq/L (20-26); Blood Gas VT 500 cc
[2019-11-28] MEDS: Cefepime HCl 2,000 MG in Water for inj. (sterile) 20 ML IVP SCH ×3 (05:17→20:52)
[2019-11-28] MEDS: MetroNIDAZOLE 500 MG/100 ML 500 MG/100 ML BAG IVPB SCH ×3 (05:17→20:54)
[2019-11-28 05:20] LABS: VBG Ionized Calcium 1.22 mmol/L (1.15-1.35)
[2019-11-28 05:21] LABS: INR 1.4
[2019-11-28 05:22] LABS: Nucleated Red Blood Cells 0.4 /100 WBC (0); Red Cell Distribution Width 16.4 % (11.5-14.5)
[2019-11-28 05:24] LABS: Activated Partial Thrombo Time 32.8 Seconds (26.0-36.0); Hematocrit 22.4 % (37.5-50.1); Hemoglobin 7.1 g/dL (12.9-16.9); Immature Platelets 24.4 % (1.1-6.1); Mean Corpuscular HGB Conc 31.7 g/dL (31.6-35.5); Mean Corpuscular Hemoglobin 29.7 pg (28.0-33.3); Mean Corpuscular Volume 93.7 fL (83.0-100.0); Red Blood Count 2.39 M/mcL (4.19-5.50)
[2019-11-28 05:27] LABS: White Blood Count 41.7 K/mcL (4.3-11.1)
[2019-11-28 05:28] LABS: Platelet Count 29 K/mcL (140-400)
[2019-11-28] MEDS: FentaNYL (PF) 1,000 MCG/100 ML IV.SOLN IVC SCH ×3 (05:29→18:14)
[2019-11-28 05:49] LABS: Anisocytosis 1+ (Not Present); Lymphocytes # 3.3 K/mcL (0.6-4.6); Macrocytosis Present (Not Present); Monocytes # 0.8 K/mcL (0.0-1.3); Neutrophils # 37.5 K/mcL (1.6-8.9); Platelet Estimate Marked Decrease (Normal)
[2019-11-28 06:01] LABS: Alanine Aminotransferase 1157 Units/L (7-52); Albumin 2.2 g/dL (3.5-5.7); Albumin/Globulin Ratio 0.7 (1.1-2.2); Alkaline Phosphatase 207 Units/L (34-104); Aspartate Amino Transferase 718 Units/L (13-39); BUN/Creatinine Ratio 23 (6-26); Bilirubin,Direct 0.6 mg/dL (0.0-0.2); Bilirubin,Indirect 0.4 mg/dL (0.0-1.0); Blood Urea Nitrogen 24 mg/dL (6-20); Calcium 8.5 mg/dL (8.6-10.3); Carbon Dioxide 28 mEq/L (23-29); Chloride 102 mEq/L (98-107); Globulin 3.1 g/dL (2.4-3.5); Glucose 112 mg/dL (70-105); Osmolality,Calculated 281 (280-300); Phosphorous < 1.0 mg/dL (2.7-4.5); Potassium 4.1 mEq/L (3.5-5.1); Sodium 133 mEq/L (136-145); Total Protein 5.3 g/dL (6.4-8.9); eGFR For African Americans > 60 (> 60); eGFR For Non-African Americans > 60 (> 60)
[2019-11-28] MEDS: Hydrocortisone Sodium Succ 100 MG/2 ML VIAL IVP SCH ×2 (07:13→20:30)
[2019-11-28] MEDS: Chlorhexidine Rinse 15 ML MOUTHWASH MM SCH ×2 (08:05→20:30)
[2019-11-28] MEDS: Pantoprazole 40 MG VIAL IVP SCH (08:05)
[2019-11-28] MEDS: Docusate Oral Soln 100 MG/10 ML UDC GTUBE SCH ×2 (08:05→20:30)
[2019-11-28] MEDS: Budesonide/Formoterol 160/4.5 1 PUFF INH IH SCH ×2 (08:18→19:31)
[2019-11-28] MEDS ORDERED: Vancomycin 1,500 MG/265 ML IV.SOLN IVPB ONE (08:39)
[2019-11-28] MEDS ORDERED: Vancomycin 1 EACH in 0.9 % Sodium Chloride 250 ML IVPB SCH (09:00)
[2019-11-28] MEDS: Micafungin 100 MG in 0.9 % Sodium Chloride Mini Bag 100 ML IVPB SCH (09:08)
[2019-11-28 10:33] LABS: VBG Ionized Calcium 1.13 mmol/L (1.15-1.35)
[2019-11-28 16:34] LABS: VBG Ionized Calcium 1.09 mmol/L (1.15-1.35)
[2019-11-28 17:02] LABS: Appearance of Body Fluid Hazy (Clear); Volume of Body Fluid 20 mL
[2019-11-28 17:02] LABS: Appearance of Body Fluid Clear (Clear)
[2019-11-28 17:03] LABS: Volume of Body Fluid 25 mL
[2019-11-28 18:47] LABS: VBG Ionized Calcium 1.07 mmol/L (1.15-1.35)
[2019-11-28 20:59] LABS: VBG Ionized Calcium 1.08 mmol/L (1.15-1.35)
[2019-11-28 23:12] LABS: VBG Ionized Calcium 1.07 mmol/L (1.15-1.35)
[2019-11-29 01:07] LABS: VBG Ionized Calcium 1.05 mmol/L (1.15-1.35)
[2019-11-29] MEDS: FentaNYL (PF) 1,000 MCG/100 ML IV.SOLN IVC SCH ×4 (01:28→21:08)
[2019-11-29] MEDS: D10% in Water 500 ML IVC SCH ×4 (02:03→12:07)
[2019-11-29 03:06] LABS: VBG Ionized Calcium 1.14 mmol/L (1.15-1.35)
[2019-11-29 03:15] LABS: INR 1.4; Prothrombin Time 15.5 Seconds (9.4-12.1)
[2019-11-29 03:17] LABS: Activated Partial Thrombo Time 28.8 Seconds (26.0-36.0)
[2019-11-29 03:18] LABS: Hemoglobin 7.1 g/dL (12.9-16.9)
[2019-11-29 03:20] LABS: Hematocrit 22.6 % (37.5-50.1); Immature Platelets 18.9 % (1.1-6.1); Mean Corpuscular HGB Conc 31.4 g/dL (31.6-35.5); Mean Corpuscular Hemoglobin 29.5 pg (28.0-33.3); Mean Corpuscular Volume 93.8 fL (83.0-100.0); Mean Platelet Volume 11.4 fL (9.4-12.4); Red Blood Count 2.41 M/mcL (4.19-5.50); Red Cell Distribution Width 16.4 % (11.5-14.5)
[2019-11-29 03:39] LABS: White Blood Count 54.9 K/mcL (4.3-11.1)
[2019-11-29] MEDS: PrismaSATE BGK 4/2.5 5,000 ML CRRT SCH ×14 (03:51→23:27)
[2019-11-29] MEDS: Artificial Tears SOLN 15 ML BOTTLE BOTH EYES SCH ×5 (03:54→19:27)
[2019-11-29 04:26] LABS: Alanine Aminotransferase 941 Units/L (7-52); Albumin 2.4 g/dL (3.5-5.7); Albumin/Globulin Ratio 0.8 (1.1-2.2); Alkaline Phosphatase 221 Units/L (34-104); Aspartate Amino Transferase 448 Units/L (13-39); BUN/Creatinine Ratio 25 (6-26); Bilirubin,Direct 0.5 mg/dL (0.0-0.2); Bilirubin,Indirect 0.4 mg/dL (0.0-1.0); Bilirubin,Total 0.9 mg/dL (0.3-1.0); Blood Urea Nitrogen 23 mg/dL (6-20); Calcium 8.3 mg/dL (8.6-10.3); Carbon Dioxide 29 mEq/L (23-29); Chloride 103 mEq/L (98-107); Globulin 3.2 g/dL (2.4-3.5); Glucose 146 mg/dL (70-105); Magnesium 1.9 mg/dL (1.6-2.6); Osmolality,Calculated 292 (280-300); Phosphorous 2.3 mg/dL (2.7-4.5); Potassium 4.1 mEq/L (3.5-5.1); Sodium 138 mEq/L (136-145); Total Protein 5.6 g/dL (6.4-8.9); eGFR For African Americans > 60 (> 60); eGFR For Non-African Americans > 60 (> 60)
[2019-11-29 04:41] LABS: ABG Base Excess 6 mEq/L (-2 to 3); ABG HCO3 31 mEq/L (21-27); ABG Oxygen Saturation 96 % (95-98); ABG PCO2 48 mmHg (35-45); ABG PH 7.42 pH Units (7.32-7.45); ABG PO2 83 mmHg (85-104); ABG TCO2 32 mEq/L (20-26); Blood Gas VT 500 cc
[2019-11-29] MEDS: Midazolam HCl 50 MG/100 ML IV.SOLN IVC SCH ×3 (04:53→20:12)
[2019-11-29] MEDS: MetroNIDAZOLE 500 MG/100 ML 500 MG/100 ML BAG IVPB SCH ×3 (05:06→22:02)
[2019-11-29] MEDS: Cefepime HCl 2,000 MG in Water for inj. (sterile) 20 ML IVP SCH ×3 (05:06→22:02)
[2019-11-29] MEDS: Hydrocortisone Sodium Succ 100 MG/2 ML VIAL IVP SCH ×3 (07:07→20:12)
[2019-11-29] MEDS: Phenylephrine 10 MG in 0.9 % Sodium Chloride 250 ML IVC SCH (07:07)
[2019-11-29] MEDS: Docusate Oral Soln 100 MG/10 ML UDC GTUBE SCH ×2 (08:16→20:11)
[2019-11-29] MEDS: Pantoprazole 40 MG VIAL IVP SCH (08:16)
[2019-11-29] MEDS: Micafungin 100 MG in 0.9 % Sodium Chloride Mini Bag 100 ML IVPB SCH (08:17)
[2019-11-29] MEDS: Chlorhexidine Rinse 15 ML MOUTHWASH MM SCH ×2 (08:18→20:11)
[2019-11-29] MEDS: Vasopressin 40 UNIT in D5% in Water 100 ML IVC SCH (08:18)
[2019-11-29 08:44] LABS: VBG Ionized Calcium 1.11 mmol/L (1.15-1.35)
[2019-11-29 09:20] LABS: VBG Ionized Calcium 1.07 mmol/L (1.15-1.35)
[2019-11-29] MEDS: Methadone Oral Concentrate 50 MG/5 ML UDC PO SCH (09:21)
[2019-11-29] MEDS: clonazePAM 1 MG TABLET PO SCH ×3 (09:31→20:12)
[2019-11-29] MEDS: Norepinephrine 4 MG/254 ML IV.SOLN IVC SCH (09:36)
[2019-11-29 09:43] LABS: Amylase 100 Units/L (29-103); Lipase 127 Units/L (11-82)
[2019-11-29] MEDS: Budesonide/Formoterol 160/4.5 1 PUFF INH IH SCH ×2 (09:47→19:18)
[2019-11-29] MEDS: Calcium Chloride 4,000 MG in 0.9 % Sodium Chloride 1,000 ML CRRT SCH ×2 (10:11→22:10)
[2019-11-29 10:58] LABS: VBG Ionized Calcium 1.07 mmol/L (1.15-1.35)
[2019-11-29 14:49] LABS: VBG Ionized Calcium 1.18 mmol/L (1.15-1.35)
[2019-11-29 21:44] LABS: VBG Ionized Calcium 1.01 mmol/L (1.15-1.35)
[2019-11-30 00:06] LABS: VBG Ionized Calcium 0.97 mmol/L (1.15-1.35)
[2019-11-30] MEDS: Calcium Gluconate 1gm/50mL 1 GM/50 ML BAG IVPB PRN ×2 (00:13→03:09)
[2019-11-30] MEDS: D10% in Water 500 ML IVC SCH ×5 (00:59→23:35)
[2019-11-30] MEDS: Artificial Tears SOLN 15 ML BOTTLE BOTH EYES SCH ×7 (00:59→23:35)
[2019-11-30] MEDS ORDERED: *HR* LORazepam 2 MG/ML VIAL IVP STA (01:34)
[2019-11-30] MEDS ORDERED: Dexmedetomidine HCl 400 MCG/100 ML MLS IVC SCH (01:45)
[2019-11-30] MEDS: PrismaSATE BGK 4/2.5 5,000 ML CRRT SCH ×10 (02:12→21:58)
[2019-11-30 02:21] LABS: VBG Ionized Calcium 0.98 mmol/L (1.15-1.35)
[2019-11-30] MEDS: Midazolam HCl 50 MG/100 ML IV.SOLN IVC SCH ×3 (03:08→18:09)
[2019-11-30] MEDS: FentaNYL (PF) 1,000 MCG/100 ML IV.SOLN IVC SCH ×4 (03:11→20:00)
[2019-11-30 03:16] LABS: Mean Corpuscular Hemoglobin 29.7 pg (28.0-33.3)
[2019-11-30 03:18] LABS: Hematocrit 22.4 % (37.5-50.1); Immature Platelets 19.1 % (1.1-6.1); Mean Corpuscular HGB Conc 31.3 g/dL (31.6-35.5); Mean Corpuscular Volume 94.9 fL (83.0-100.0); Mean Platelet Volume 12.6 fL (9.4-12.4); Nucleated Red Blood Cells 0.7 /100 WBC (0); Red Blood Count 2.36 M/mcL (4.19-5.50); Red Cell Distribution Width 16.8 % (11.5-14.5)
[2019-11-30 03:19] LABS: Platelet Count 52 K/mcL (140-400)
[2019-11-30 03:20] LABS: White Blood Count 53.8 K/mcL (4.3-11.1)
[2019-11-30 03:40] LABS: Anisocytosis 1+ (Not Present); Hypochromasia Present (Not Present); Lymphocytes # 11.8 K/mcL (0.6-4.6); Macrocytosis Present (Not Present); Monocytes # 1.1 K/mcL (0.0-1.3); Neutrophils # 39.8 K/mcL (1.6-8.9); Polychromasia 1+ (Not Present)
[2019-11-30 03:41] LABS: Platelet Estimate Decreased (Normal)
[2019-11-30 03:48] LABS: Alanine Aminotransferase 704 Units/L (7-52); Albumin 2.5 g/dL (3.5-5.7); Albumin/Globulin Ratio 0.7 (1.1-2.2); Alkaline Phosphatase 218 Units/L (34-104); Aspartate Amino Transferase 287 Units/L (13-39); BUN/Creatinine Ratio 26 (6-26); Bilirubin,Total 0.8 mg/dL (0.3-1.0); Blood Urea Nitrogen 25 mg/dL (6-20); Calcium 9.3 mg/dL (8.6-10.3); Carbon Dioxide 30 mEq/L (23-29); Chloride 103 mEq/L (98-107); Globulin 3.4 g/dL (2.4-3.5); Glucose 108 mg/dL (70-105); Osmolality,Calculated 293 (280-300); Potassium 4.5 mEq/L (3.5-5.1); Sodium 139 mEq/L (136-145); Total Protein 5.9 g/dL (6.4-8.9); eGFR For African Americans > 60 (> 60); eGFR For Non-African Americans > 60 (> 60)
[2019-11-30] MEDS: Vasopressin 40 UNIT in D5% in Water 100 ML IVC SCH ×2 (04:20→20:18)
[2019-11-30 04:26] LABS: ABG Base Excess 7 mEq/L (-2 to 3); ABG HCO3 31 mEq/L (21-27); ABG Oxygen Saturation 98 % (95-98); ABG PCO2 45 mmHg (35-45); ABG PH 7.46 pH Units (7.32-7.45); ABG PO2 109 mmHg (85-104); ABG TCO2 33 mEq/L (20-26); Blood Gas Modality VC; Blood Gas VT 500 cc
[2019-11-30 05:13] LABS: VBG Ionized Calcium 1.07 mmol/L (1.15-1.35)
[2019-11-30] MEDS: Cefepime HCl 2,000 MG in Water for inj. (sterile) 20 ML IVP SCH ×3 (06:08→22:01)
[2019-11-30] MEDS: MetroNIDAZOLE 500 MG/100 ML 500 MG/100 ML BAG IVPB SCH ×3 (06:08→22:01)
[2019-11-30] MEDS: Calcium Chloride 4,000 MG in 0.9 % Sodium Chloride 1,000 ML CRRT SCH ×2 (06:41→18:26)
[2019-11-30 07:01] LABS: VBG Ionized Calcium 1.04 mmol/L (1.15-1.35)
[2019-11-30] MEDS: Budesonide/Formoterol 160/4.5 1 PUFF INH IH SCH ×2 (07:19→19:38)
[2019-11-30] MEDS: Docusate Oral Soln 100 MG/10 ML UDC GTUBE SCH ×2 (08:41→20:23)
[2019-11-30] MEDS: Methadone Oral Concentrate 50 MG/5 ML UDC PO SCH (08:42)
[2019-11-30] MEDS: Pantoprazole 40 MG VIAL IVP SCH (08:42)
[2019-11-30] MEDS: Chlorhexidine Rinse 15 ML MOUTHWASH MM SCH ×2 (08:42→20:23)
[2019-11-30] MEDS: clonazePAM 1 MG TABLET PO SCH ×3 (08:44→20:23)
[2019-11-30] MEDS ORDERED: PrednisoLONE Oral Soln 15 MG/5 ML UDC PO SCH (09:00)
[2019-11-30 10:23] LABS: VBG Ionized Calcium 1.17 mmol/L (1.15-1.35)
[2019-11-30] MEDS ORDERED: Vancomycin 1,500 MG/265 ML IV.SOLN IVPB ONE (11:00)
[2019-11-30] MEDS ORDERED: *HR* Heparin 5,000 UNIT/ML VIAL ONE (11:22)
[2019-11-30] MEDS ORDERED: 0.9 % Sodium Chloride 1,000 ML IVC ONE (11:37)
[2019-11-30] MEDS: Norepinephrine 4 MG/254 ML IV.SOLN IVC SCH (11:51)
[2019-11-30] MEDS ORDERED: *HR* Atropine Sulfate 1 MG/10 ML SYRINGE ONE (11:55)
[2019-11-30 12:46] LABS: Hemoglobin 7.2 g/dL (12.9-16.9); Nucleated Red Blood Cells 0.4 /100 WBC (0)
[2019-11-30] MEDS: Albumin Human 5% 12.5 GM/250 ML IV.SOLN IVC SCH ×2 (12:46→14:10)
[2019-11-30 12:48] LABS: Hematocrit 23.3 % (37.5-50.1); Immature Platelets 19.9 % (1.1-6.1); Mean Corpuscular HGB Conc 30.9 g/dL (31.6-35.5); Mean Corpuscular Volume 97.1 fL (83.0-100.0); Mean Platelet Volume 12.7 fL (9.4-12.4); Red Cell Distribution Width 17.1 % (11.5-14.5)
[2019-11-30] MEDS: Lactulose Oral Soln 20 GM/30 ML UDC GTUBE SCH (12:59)
[2019-11-30 13:03] LABS: INR 1.4; Prothrombin Time 15.9 Seconds (9.4-12.1)
[2019-11-30 13:04] LABS: BUN/Creatinine Ratio 24 (6-26); Blood Urea Nitrogen 26 mg/dL (6-20); Calcium 10.1 mg/dL (8.6-10.3); Carbon Dioxide 34 mEq/L (23-29); Chloride 104 mEq/L (98-107); Glucose 129 mg/dL (70-105); Osmolality,Calculated 296 (280-300); Sodium 140 mEq/L (136-145); eGFR For African Americans > 60 (> 60); eGFR For Non-African Americans > 60 (> 60)
[2019-11-30 13:06] LABS: Activated Partial Thrombo Time 49.4 Seconds (26.0-36.0)
[2019-11-30 13:11] LABS: Platelet Count 51 K/mcL (140-400)
[2019-11-30 13:13] LABS: White Blood Count 54.5 K/mcL (4.3-11.1)
[2019-11-30 13:23] LABS: Lymphocytes # 10.4 K/mcL (0.6-4.6); Monocytes # 1.6 K/mcL (0.0-1.3); Neutrophils # 39.2 K/mcL (1.6-8.9)
[2019-11-30 13:24] LABS: Anisocytosis 1+ (Not Present); Hypochromasia Present (Not Present); Platelet Estimate Marked Decrease (Normal); Reactive Lymphocytes Present (Not Present); Toxic Granulation Present (Not Present)
[2019-11-30] MEDS ORDERED: Lidocaine -MPF 1% 5 ML AMPUL INFILT ONE (14:32)
[2019-11-30 17:46] LABS: VBG Ionized Calcium 1.21 mmol/L (1.15-1.35)
[2019-11-30] MEDS: Phenylephrine 10 MG in 0.9 % Sodium Chloride 250 ML IVC SCH (19:22)
[2019-11-30 23:20] LABS: VBG Ionized Calcium 1.18 mmol/L (1.15-1.35)
[2019-12-01] MEDS: Midazolam HCl 50 MG/100 ML IV.SOLN IVC SCH ×5 (00:10→20:39)
[2019-12-01] MEDS: FentaNYL (PF) 1,000 MCG/100 ML IV.SOLN IVC SCH (01:20)
[2019-12-01] MEDS: PrismaSATE BGK 4/2.5 5,000 ML CRRT SCH ×10 (01:20→15:00)
[2019-12-01] MEDS: Calcium Chloride 4,000 MG in 0.9 % Sodium Chloride 1,000 ML CRRT SCH ×2 (01:40→08:51)
[2019-12-01] MEDS: Artificial Tears SOLN 15 ML BOTTLE BOTH EYES SCH ×6 (03:57→23:50)
[2019-12-01 04:27] LABS: Hemoglobin 6.8 g/dL (12.9-16.9); Immature Platelets 17.2 % (1.1-6.1); Mean Corpuscular HGB Conc 30.9 g/dL (31.6-35.5); Mean Corpuscular Volume 96.9 fL (83.0-100.0); Mean Platelet Volume 12.8 fL (9.4-12.4); Nucleated Red Blood Cells 0.2 /100 WBC (0); Red Blood Count 2.27 M/mcL (4.19-5.50)
[2019-12-01 04:33] LABS: ABG Base Excess 8 mEq/L (-2 to 3); ABG HCO3 33 mEq/L (21-27); ABG Oxygen Saturation 96 % (95-98); ABG PCO2 49 mmHg (35-45); ABG PH 7.43 pH Units (7.32-7.45); ABG PO2 78 mmHg (85-104); ABG TCO2 34 mEq/L (20-26); Blood Gas Modality ASSIST CONTROL; Blood Gas VT 500 cc
[2019-12-01 04:42] LABS: Alanine Aminotransferase 428 Units/L (7-52); Albumin 2.6 g/dL (3.5-5.7); Albumin/Globulin Ratio 0.8 (1.1-2.2); Alkaline Phosphatase 182 Units/L (34-104); Aspartate Amino Transferase 138 Units/L (13-39); BUN/Creatinine Ratio 25 (6-26); Bilirubin,Total 0.7 mg/dL (0.3-1.0); Blood Urea Nitrogen 25 mg/dL (6-20); Calcium 9.9 mg/dL (8.6-10.3); Carbon Dioxide 33 mEq/L (23-29); Chloride 103 mEq/L (98-107); Globulin 3.1 g/dL (2.4-3.5); Glucose 120 mg/dL (70-105); Magnesium 1.9 mg/dL (1.6-2.6); Osmolality,Calculated 294 (280-300); Phosphorous 1.7 mg/dL (2.7-4.5); Potassium 4.4 mEq/L (3.5-5.1); Sodium 139 mEq/L (136-145); Total Protein 5.7 g/dL (6.4-8.9); Vancomycin,Trough 17 mcg/mL (5-10); eGFR For African Americans > 60 (> 60); eGFR For Non-African Americans > 60 (> 60)
[2019-12-01 05:08] LABS: Platelet Count 51 K/mcL (140-400); White Blood Count 38.8 K/mcL (4.3-11.1)
[2019-12-01 05:10] LABS: VBG Ionized Calcium 1.23 mmol/L (1.15-1.35)
[2019-12-01 05:15] LABS: Lymphocytes # 9.3 K/mcL (0.6-4.6); Neutrophils # 28.7 K/mcL (1.6-8.9); Polychromasia 1+ (Not Present); Reactive Lymphocytes Present (Not Present)
[2019-12-01 05:16] LABS: Anisocytosis 2+ (Not Present); Macrocytosis Present (Not Present); Platelet Estimate Decreased (Normal)
[2019-12-01] MEDS: MetroNIDAZOLE 500 MG/100 ML 500 MG/100 ML BAG IVPB SCH ×3 (05:55→21:35)
[2019-12-01] MEDS: Cefepime HCl 2,000 MG in Water for inj. (sterile) 20 ML IVP SCH ×3 (05:55→21:35)
[2019-12-01] MEDS ORDERED: 0.9 % Sodium Chloride 250 ML IVC SCH (06:00)
[2019-12-01] MEDS: FentaNYL (PF) 2,500 MCG/50 ML IV.SOLN IVC SCH ×2 (07:07→15:23)
[2019-12-01] MEDS: Budesonide/Formoterol 160/4.5 1 PUFF INH IH SCH ×2 (07:14→19:53)
[2019-12-01] MEDS: Lactulose Oral Soln 20 GM/30 ML UDC GTUBE SCH (08:31)
[2019-12-01] MEDS: Pantoprazole 40 MG VIAL IVP SCH (08:31)
[2019-12-01] MEDS: Methadone Oral Concentrate 50 MG/5 ML UDC PO SCH (08:31)
[2019-12-01] MEDS: clonazePAM 1 MG TABLET PO SCH ×3 (08:31→20:05)
[2019-12-01] MEDS: Docusate Oral Soln 100 MG/10 ML UDC GTUBE SCH ×2 (08:31→20:05)
[2019-12-01] MEDS: Chlorhexidine Rinse 15 ML MOUTHWASH MM SCH ×2 (08:31→20:05)
[2019-12-01 11:58] LABS: VBG Ionized Calcium 1.24 mmol/L (1.15-1.35)
[2019-12-01] MEDS ORDERED: Vancomycin 1,500 MG/265 ML IV.SOLN IVPB ONE (12:30)
[2019-12-01] MEDS ORDERED: *HR* Heparin 5,000 UNIT/ML VIAL ONE (17:42)
[2019-12-01] MEDS: Vasopressin 40 UNIT in D5% in Water 100 ML IVC SCH (19:35)
[2019-12-01] MEDS: Norepinephrine 4 MG/254 ML IV.SOLN IVC SCH (19:36)
[2019-12-02] MEDS: Midazolam HCl 50 MG/100 ML IV.SOLN IVC SCH ×3 (01:41→12:50)
[2019-12-02] MEDS: FentaNYL (PF) 2,500 MCG/50 ML IV.SOLN IVC SCH ×2 (02:23→14:50)
[2019-12-02 04:09] LABS: Mean Corpuscular HGB Conc 30.5 g/dL (31.6-35.5); Mean Corpuscular Hemoglobin 28.7 pg (28.0-33.3); Nucleated Red Blood Cells 0.2 /100 WBC (0)
[2019-12-02] MEDS: Artificial Tears SOLN 15 ML BOTTLE BOTH EYES SCH ×6 (04:10→23:38)
[2019-12-02 04:11] LABS: Hematocrit 27.2 % (37.5-50.1); Hemoglobin 8.3 g/dL (12.9-16.9); Immature Platelets 16.6 % (1.1-6.1); Mean Corpuscular Volume 94.1 fL (83.0-100.0); Mean Platelet Volume 12.2 fL (9.4-12.4); Red Blood Count 2.89 M/mcL (4.19-5.50); Red Cell Distribution Width 22.8 % (11.5-14.5)
[2019-12-02 04:18] LABS: VBG Ionized Calcium 1.25 mmol/L (1.15-1.35)
[2019-12-02 04:23] LABS: Platelet Count 67 K/mcL (140-400)
[2019-12-02 04:27] LABS: ABG Base Excess 9 mEq/L (-2 to 3); ABG HCO3 34 mEq/L (21-27); ABG Oxygen Saturation 90 % (95-98); ABG PCO2 53 mmHg (35-45); ABG PH 7.42 pH Units (7.32-7.45); ABG PO2 58 mmHg (85-104); ABG TCO2 36 mEq/L (20-26); Blood Gas Modality ASSIST CONTROL; Blood Gas VT 500 cc
[2019-12-02 04:50] LABS: Calcium 8.9 mg/dL (8.6-10.3); Magnesium 2.1 mg/dL (1.6-2.6); Phosphorous 4.3 mg/dL (2.7-4.5); Potassium 5.7 mEq/L (3.5-5.1)
[2019-12-02 05:03] LABS: Lymphocytes # 5.6 K/mcL (0.6-4.6); Monocytes # 2.6 K/mcL (0.0-1.3); Neutrophils # 28.9 K/mcL (1.6-8.9); Polychromasia 1+ (Not Present); Reactive Lymphocytes Present (Not Present)
[2019-12-02 05:04] LABS: Platelet Estimate Decreased (Normal)
[2019-12-02] MEDS: Vasopressin 40 UNIT in D5% in Water 100 ML IVC SCH (05:09)
[2019-12-02] MEDS: Cefepime HCl 2,000 MG in Water for inj. (sterile) 20 ML IVP SCH ×2 (05:11→17:57)
[2019-12-02] MEDS: MetroNIDAZOLE 500 MG/100 ML 500 MG/100 ML BAG IVPB SCH ×3 (05:11→22:01)
[2019-12-02] MEDS: Budesonide/Formoterol 160/4.5 1 PUFF INH IH SCH ×2 (07:15→22:09)
[2019-12-02] MEDS: Chlorhexidine Rinse 15 ML MOUTHWASH MM SCH ×2 (08:04→20:17)
[2019-12-02] MEDS: Pantoprazole 40 MG VIAL IVP SCH (08:04)
[2019-12-02] MEDS: Docusate Oral Soln 100 MG/10 ML UDC GTUBE SCH ×2 (08:04→20:17)
[2019-12-02] MEDS: Methadone Oral Concentrate 50 MG/5 ML UDC PO SCH (08:04)
[2019-12-02] MEDS: clonazePAM 1 MG TABLET PO SCH ×3 (08:05→20:17)
[2019-12-02] MEDS: Lactulose Oral Soln 20 GM/30 ML UDC GTUBE SCH (11:15)
[2019-12-02] MEDS: 0.9 % Sodium Chloride 1,000 ML PRIME SCH ×3 (11:15→16:32)
[2019-12-02 12:55] LABS: Calcium 8.6 mg/dL (8.6-10.3)
[2019-12-02] MEDS ORDERED: *HR* Dextrose 50 % in Water (Vial) 50 ML VIAL IVP ONE (13:06)
[2019-12-02] MEDS: PrismaSATE BGK 4/2.5 5,000 ML CRRT SCH ×6 (16:32→23:36)
[2019-12-02] MEDS: Calcium Chloride 4,000 MG in 0.9 % Sodium Chloride 1,000 ML CRRT SCH (16:34)
[2019-12-02] MEDS: Midazolam HCl 100 MG in 0.9 % Sodium Chloride 80 ML IVC SCH (17:50)
[2019-12-02] MEDS: *HR* OxyCODONE Immed Rel 5 MG TABLET PO PRN (17:57)
[2019-12-02 18:36] LABS: VBG Ionized Calcium 0.93 mmol/L (1.15-1.35)
[2019-12-02] MEDS: Calcium Gluconate 1gm/50mL 1 GM/50 ML BAG IVPB PRN ×2 (18:52→21:29)
[2019-12-02] MEDS: Norepinephrine 4 MG/254 ML IV.SOLN IVC SCH (21:04)
[2019-12-02 21:17] LABS: VBG Ionized Calcium 0.94 mmol/L (1.15-1.35)
[2019-12-02 23:59] LABS: VBG Ionized Calcium 0.95 mmol/L (1.15-1.35)
[2019-12-03] MEDS: Calcium Gluconate 1gm/50mL 1 GM/50 ML BAG IVPB PRN ×3 (00:23→07:46)
[2019-12-03] MEDS: Midazolam HCl 100 MG in 0.9 % Sodium Chloride 80 ML IVC SCH ×2 (00:40→10:33)
[2019-12-03] MEDS: PrismaSATE BGK 4/2.5 5,000 ML CRRT SCH ×6 (03:00→10:20)
[2019-12-03] MEDS: FentaNYL (PF) 2,500 MCG/50 ML IV.SOLN IVC SCH ×2 (03:15→17:38)
[2019-12-03 03:22] LABS: VBG Ionized Calcium 0.99 mmol/L (1.15-1.35)
[2019-12-03] MEDS: Artificial Tears SOLN 15 ML BOTTLE BOTH EYES SCH ×5 (03:49→21:19)
[2019-12-03 04:07] LABS: Nucleated Red Blood Cells 0.1 /100 WBC (0); Red Cell Distribution Width 22.6 % (11.5-14.5)
[2019-12-03 04:09] LABS: Hematocrit 26.1 % (37.5-50.1); Immature Platelets 16.5 % (1.1-6.1); Mean Corpuscular HGB Conc 30.7 g/dL (31.6-35.5); Mean Corpuscular Hemoglobin 28.9 pg (28.0-33.3); Mean Corpuscular Volume 94.2 fL (83.0-100.0); Mean Platelet Volume 11.6 fL (9.4-12.4); Red Blood Count 2.77 M/mcL (4.19-5.50); White Blood Count 25.5 K/mcL (4.3-11.1)
[2019-12-03 04:10] LABS: Platelet Count 74 K/mcL (140-400)
[2019-12-03 04:39] LABS: Lymphocytes # 3.6 K/mcL (0.6-4.6); Neutrophils # 20.4 K/mcL (1.6-8.9)
[2019-12-03 04:40] LABS: Anisocytosis 2+ (Not Present); Macrocytosis Present (Not Present); Platelet Estimate Decreased (Normal); Polychromasia 1+ (Not Present)
[2019-12-03 04:47] LABS: ABG Base Excess 10 mEq/L (-2 to 3); ABG HCO3 34 mEq/L (21-27); ABG Oxygen Saturation 99 % (95-98); ABG PCO2 37 mmHg (35-45); ABG PH 7.57 pH Units (7.32-7.45); ABG PO2 112 mmHg (85-104); ABG TCO2 35 mEq/L (20-26); Blood Gas Modality ASSIST CONTROL; Blood Gas VT 500 cc
[2019-12-03] MEDS ORDERED: acetaZOLAMIDE 250 MG TABLET PO ONE (05:53)
[2019-12-03] MEDS: MetroNIDAZOLE 500 MG/100 ML 500 MG/100 ML BAG IVPB SCH ×3 (06:03→21:19)
[2019-12-03] MEDS: Cefepime HCl 2,000 MG in Water for inj. (sterile) 20 ML IVP SCH (06:04)
[2019-12-03] MEDS ORDERED: Vancomycin 1,250 MG/262.5 ML IV.SOLN IVPB ONE (07:00)
[2019-12-03 07:04] LABS: VBG Ionized Calcium 0.93 mmol/L (1.15-1.35)
[2019-12-03 07:25] LABS: Albumin 2.7 g/dL (3.5-5.7); Albumin/Globulin Ratio 0.8 (1.1-2.2); Bilirubin,Total 0.6 mg/dL (0.3-1.0); Calcium 8.5 mg/dL (8.6-10.3); Globulin 3.6 g/dL (2.4-3.5); Phosphorous 3.4 mg/dL (2.7-4.5); Potassium 4.8 mEq/L (3.5-5.1); Total Protein 6.3 g/dL (6.4-8.9)
[2019-12-03] MEDS: Chlorhexidine Rinse 15 ML MOUTHWASH MM SCH ×2 (07:44→21:18)
[2019-12-03] MEDS: Calcium Chloride 4,000 MG in 0.9 % Sodium Chloride 1,000 ML CRRT SCH (07:44)
[2019-12-03] MEDS: Methadone Oral Concentrate 50 MG/5 ML UDC PO SCH (07:44)
[2019-12-03] MEDS: Docusate Oral Soln 100 MG/10 ML UDC GTUBE SCH ×2 (07:44→21:18)
[2019-12-03] MEDS: clonazePAM 1 MG TABLET PO SCH ×3 (07:44→21:18)
[2019-12-03] MEDS: Pantoprazole 40 MG VIAL IVP SCH (07:44)
[2019-12-03] MEDS: *HR* OxyCODONE Immed Rel 5 MG TABLET PO PRN ×2 (07:47→17:38)
[2019-12-03] MEDS: Budesonide/Formoterol 160/4.5 1 PUFF INH IH SCH ×2 (09:17→19:41)
[2019-12-03] MEDS ORDERED: 0.9 % Sodium Chloride 250 ML IVC PRN (10:11)
[2019-12-03] MEDS ORDERED: 0.9 % Sodium Chloride 1,000 ML PRIME SCH (10:15)
[2019-12-03 11:08] LABS: VBG Ionized Calcium 1.09 mmol/L (1.15-1.35)
[2019-12-03] MEDS ORDERED: *HR* Heparin 5,000 UNIT/ML VIAL ONE (11:35)
[2019-12-03] MEDS: *HR* Heparin 5,000 UNIT/ML VIAL IVP PRN (12:23)
[2019-12-03] MEDS ORDERED: Cefepime HCl 2,000 MG in Water for inj. (sterile) 20 ML IVP SCH (16:00)
[2019-12-03] MEDS ORDERED: *HR* Heparin 10,000 UNIT/10 ML VIAL IV PRN (17:47)
[2019-12-03 18:50] LABS: Hematocrit 27.5 % (37.5-50.1); Hemoglobin 8.5 g/dL (12.9-16.9)
[2019-12-03] MEDS: Norepinephrine 4 MG/254 ML IV.SOLN IVC SCH (20:18)
[2019-12-03] MEDS ORDERED: D5% in Water 1,000 ML IVC PRN (20:18)
[2019-12-03] MEDS: D10% in Water 500 ML IVC SCH (20:19)
[2019-12-03] MEDS: Phenylephrine 10 MG in 0.9 % Sodium Chloride 250 ML IVC SCH (20:19)
[2019-12-04] MEDS: Midazolam HCl 100 MG in 0.9 % Sodium Chloride 80 ML IVC SCH (00:48)
[2019-12-04] MEDS: Artificial Tears SOLN 15 ML BOTTLE BOTH EYES SCH ×7 (00:49→22:57)
[2019-12-04 03:31] LABS: Hemoglobin 8.1 g/dL (12.9-16.9)
[2019-12-04 03:32] LABS: Hematocrit 25.7 % (37.5-50.1); Mean Corpuscular HGB Conc 31.5 g/dL (31.6-35.5); Mean Corpuscular Hemoglobin 29.9 pg (28.0-33.3); Mean Corpuscular Volume 94.8 fL (83.0-100.0); Mean Platelet Volume 12.3 fL (9.4-12.4); Platelet Count 103 K/mcL (140-400); Red Blood Count 2.71 M/mcL (4.19-5.50); Red Cell Distribution Width 22.6 % (11.5-14.5); White Blood Count 28.1 K/mcL (4.3-11.1)
[2019-12-04 03:45] LABS: INR 1.3; Prothrombin Time 14.2 Seconds (9.4-12.1)
[2019-12-04 03:51] LABS: Albumin 2.9 g/dL (3.5-5.7); Albumin/Globulin Ratio 0.7 (1.1-2.2); Bilirubin,Total 0.6 mg/dL (0.3-1.0); Globulin 3.9 g/dL (2.4-3.5); Potassium 5.9 mEq/L (3.5-5.1); Total Protein 6.8 g/dL (6.4-8.9)
[2019-12-04 05:17] LABS: ABG Base Excess 10 mEq/L (-2 to 3); ABG HCO3 34 mEq/L (21-27); ABG Oxygen Saturation 94 % (95-98); ABG PCO2 41 mmHg (35-45); ABG PH 7.53 pH Units (7.32-7.45); ABG PO2 65 mmHg (85-104); ABG TCO2 35 mEq/L (20-26); Blood Gas Modality AF; Blood Gas VT 500 cc
[2019-12-04] MEDS: MetroNIDAZOLE 500 MG/100 ML 500 MG/100 ML BAG IVPB SCH ×3 (05:27→22:54)
[2019-12-04 05:41] LABS: Magnesium 2.1 mg/dL (1.6-2.6); Phosphorous 3.9 mg/dL (2.7-4.5)
[2019-12-04] MEDS ORDERED: Vancomycin 500 MG in 0.9 % Sodium Chloride Mini Bag 100 ML IVPB ONE (06:00)
[2019-12-04] MEDS: Budesonide/Formoterol 160/4.5 1 PUFF INH IH SCH ×2 (07:17→21:13)
[2019-12-04] MEDS ORDERED: 0.9 % Sodium Chloride 250 ML IVC PRN (07:53)
[2019-12-04] MEDS ORDERED: *HR* Heparin 10,000 UNIT/10 ML VIAL IV PRN (08:01)
[2019-12-04] MEDS: Pantoprazole 40 MG VIAL IVP SCH (08:10)
[2019-12-04] MEDS: Chlorhexidine Rinse 15 ML MOUTHWASH MM SCH ×2 (08:10→19:52)
[2019-12-04] MEDS: Docusate Oral Soln 100 MG/10 ML UDC GTUBE SCH ×2 (08:15→19:51)
[2019-12-04] MEDS: clonazePAM 1 MG TABLET PO SCH ×3 (08:15→19:51)
[2019-12-04] MEDS: Dexmedetomidine HCl 400 MCG/100 ML MLS IVC SCH (09:16)
[2019-12-04] MEDS: Methadone Oral Concentrate 50 MG/5 ML UDC PO SCH (09:27)
[2019-12-04] MEDS: D5% in 0.45% NACL 1,000 ML IVC SCH (13:40)
[2019-12-04] MEDS ORDERED: Cefepime HCl 2,000 MG in Water for inj. (sterile) 20 ML IVP ONE (16:00)
[2019-12-04] MEDS: Norepinephrine 4 MG/254 ML IV.SOLN IVC SCH (16:12)
[2019-12-04] MEDS: *HR* Dextrose 50 % in Water (Vial) 50 ML VIAL IVP PRN ×2 (19:52→23:13)
[2019-12-05] MEDS: D5% in 0.45% NACL 1,000 ML IVC SCH ×2 (00:33→14:31)
[2019-12-05] MEDS: Dexmedetomidine HCl 400 MCG/100 ML MLS IVC SCH (00:40)
[2019-12-05] MEDS: *HR* Dextrose 50 % in Water (Vial) 50 ML VIAL IVP PRN ×3 (01:08→23:40)
[2019-12-05] MEDS: D10% in Water 500 ML IVC SCH ×3 (01:34→15:46)
[2019-12-05 03:45] LABS: VBG Ionized Calcium 1.05 mmol/L (1.15-1.35)
[2019-12-05 03:51] LABS: Hemoglobin 7.2 g/dL (12.9-16.9)
[2019-12-05 03:52] LABS: Mean Corpuscular HGB Conc 31.3 g/dL (31.6-35.5); Mean Corpuscular Hemoglobin 29.3 pg (28.0-33.3); Mean Corpuscular Volume 93.5 fL (83.0-100.0); Mean Platelet Volume 11.8 fL (9.4-12.4); Platelet Count 131 K/mcL (140-400); Red Blood Count 2.46 M/mcL (4.19-5.50); Red Cell Distribution Width 21.9 % (11.5-14.5); White Blood Count 25.2 K/mcL (4.3-11.1)
[2019-12-05 03:59] LABS: INR 1.3; Prothrombin Time 14.4 Seconds (9.4-12.1)
[2019-12-05 04:13] LABS: Albumin 2.6 g/dL (3.5-5.7); Albumin/Globulin Ratio 0.6 (1.1-2.2); Bilirubin,Total 0.7 mg/dL (0.3-1.0); Calcium 8.1 mg/dL (8.6-10.3); Globulin 4.1 g/dL (2.4-3.5); Magnesium 2.1 mg/dL (1.6-2.6); Phosphorous 4.7 mg/dL (2.7-4.5); Potassium 4.4 mEq/L (3.5-5.1); Total Protein 6.7 g/dL (6.4-8.9)
[2019-12-05] MEDS ORDERED: Calcium Gluconate 1gm/50mL 1 GM/50 ML BAG IVPB ONE (04:18)
[2019-12-05] MEDS: Artificial Tears SOLN 15 ML BOTTLE BOTH EYES SCH ×6 (04:31→23:43)
[2019-12-05] MEDS: MetroNIDAZOLE 500 MG/100 ML 500 MG/100 ML BAG IVPB SCH ×3 (05:03→22:15)
[2019-12-05] MEDS: Methadone Oral Concentrate 50 MG/5 ML UDC PO SCH (08:46)
[2019-12-05] MEDS: Docusate Oral Soln 100 MG/10 ML UDC GTUBE SCH ×2 (08:48→20:35)
[2019-12-05] MEDS: Pantoprazole 40 MG VIAL IVP SCH (08:49)
[2019-12-05] MEDS: clonazePAM 1 MG TABLET PO SCH ×3 (08:53→20:35)
[2019-12-05] MEDS: Chlorhexidine Rinse 15 ML MOUTHWASH MM SCH ×2 (08:53→19:35)
[2019-12-05] MEDS: Budesonide/Formoterol 160/4.5 1 PUFF INH IH SCH ×2 (10:01→21:52)
[2019-12-05 14:00] LABS: VBG Ionized Calcium 1.12 mmol/L (1.15-1.35)
[2019-12-05 16:40] LABS: A.galactomannan Ag Index 0.07
[2019-12-05] MEDS: Norepinephrine 4 MG/254 ML IV.SOLN IVC SCH (16:48)
[2019-12-06] MEDS: D10% in Water 500 ML IVC SCH ×6 (01:09→23:54)
[2019-12-06 03:54] LABS: Basophils % 0.1 %; Eosinophils # 0.1 K/mcL (0.0-0.6); Eosinophils % 0.5 %; Hematocrit 21.6 % (37.5-50.1); Hemoglobin 6.7 g/dL (12.9-16.9); Immature Granulocytes % 1.2 % (0-4); Lymphocytes # 1.8 K/mcL (0.6-4.6); Mean Corpuscular Volume 93.5 fL (83.0-100.0); Mean Platelet Volume 11.1 fL (9.4-12.4); Monocytes # 1.9 K/mcL (0.0-1.3); Monocytes % 10.9 %; Neutrophils # 13.6 K/mcL (1.6-8.9); Platelet Count 175 K/mcL (140-400); Red Blood Count 2.31 M/mcL (4.19-5.50); Red Cell Distribution Width 21.6 % (11.5-14.5); Segmented Neutrophils % 77.3 %; White Blood Count 17.7 K/mcL (4.3-11.1)
[2019-12-06 03:56] LABS: VBG Ionized Calcium 1.09 mmol/L (1.15-1.35)
[2019-12-06 03:58] LABS: INR 1.4; Prothrombin Time 15.6 Seconds (9.4-12.1)
[2019-12-06 04:24] LABS: Albumin 2.5 g/dL (3.5-5.7); Albumin/Globulin Ratio 0.6 (1.1-2.2); Bilirubin,Total 0.7 mg/dL (0.3-1.0); Calcium 8.1 mg/dL (8.6-10.3); Globulin 4.2 g/dL (2.4-3.5); Magnesium 2.1 mg/dL (1.6-2.6); Phosphorous 5.9 mg/dL (2.7-4.5); Potassium 4.4 mEq/L (3.5-5.1); Total Protein 6.7 g/dL (6.4-8.9)
[2019-12-06] MEDS: Artificial Tears SOLN 15 ML BOTTLE BOTH EYES SCH ×2 (04:30→08:46)
[2019-12-06] MEDS: D5% in 0.45% NACL 1,000 ML IVC SCH (04:30)
[2019-12-06] MEDS: FentaNYL (PF) 2,500 MCG/50 ML IV.SOLN IVC SCH (05:29)
[2019-12-06] MEDS: *HR* Dextrose 50 % in Water (Vial) 50 ML VIAL IVP PRN ×3 (05:33→19:48)
[2019-12-06] MEDS: MetroNIDAZOLE 500 MG/100 ML 500 MG/100 ML BAG IVPB SCH ×3 (05:41→21:48)
[2019-12-06] MEDS ORDERED: 0.9 % Sodium Chloride 250 ML IVC SCH (06:30)
[2019-12-06] MEDS: Budesonide/Formoterol 160/4.5 1 PUFF INH IH SCH ×2 (07:34→19:51)
[2019-12-06] MEDS: clonazePAM 1 MG TABLET PO SCH ×3 (08:44→21:18)
[2019-12-06] MEDS: Docusate Oral Soln 100 MG/10 ML UDC GTUBE SCH ×2 (08:44→21:20)
[2019-12-06] MEDS: Dexmedetomidine HCl 400 MCG/100 ML MLS IVC SCH (08:46)
[2019-12-06] MEDS: Chlorhexidine Rinse 15 ML MOUTHWASH MM SCH (08:46)
[2019-12-06] MEDS: Pantoprazole 40 MG VIAL IVP SCH (08:46)
[2019-12-06] MEDS: Methadone Oral Concentrate 50 MG/5 ML UDC PO SCH (09:13)
[2019-12-06 11:28] LABS: HSV Source Lip lesion
[2019-12-06] MEDS ORDERED: Vancomycin 1 EACH in 0.9 % Sodium Chloride 250 ML IVPB SCH (13:17)
[2019-12-06] MEDS ORDERED: Naloxone 0.4 MG/ML INJ IVP PRN (13:17)
[2019-12-06] MEDS ORDERED: Ondansetron 4 MG/2 ML VIAL IVP PRN (13:17)
[2019-12-06] MEDS ORDERED: D5% in 0.45% NACL 1,000 ML IVC SCH (13:17)
[2019-12-06] MEDS ORDERED: *HR* Metoprolol 5 MG/5 ML VIAL IVP PRN (13:17)
[2019-12-06 14:32] LABS: HSV 1 DNA DETECTED (Not Detect); HSV 2 DNA Not Detected (Not Detect)
[2019-12-06] MEDS ORDERED: Aminoglycoside Consult 1 EACH MC ONE ×2 (14:55→16:54)
[2019-12-06] MEDS ORDERED: clonazePAM 1 MG TABLET PO SCH (15:00)
[2019-12-06 16:17] LABS: Hematocrit 22.9 % (37.5-50.1); Hemoglobin 7.2 g/dL (12.9-16.9); Mean Corpuscular HGB Conc 31.4 g/dL (31.6-35.5); Mean Corpuscular Volume 92.3 fL (83.0-100.0); Mean Platelet Volume 10.7 fL (9.4-12.4); Platelet Count 171 K/mcL (140-400); Red Blood Count 2.48 M/mcL (4.19-5.50); Red Cell Distribution Width 20.8 % (11.5-14.5); White Blood Count 14.4 K/mcL (4.3-11.1)
[2019-12-06] MEDS ORDERED: Cefepime HCl 2,000 MG in Water for inj. (sterile) 20 ML IVP SCH (17:00)
[2019-12-06] MEDS ORDERED: *HR* Heparin 5,000 UNIT/ML VIAL SQ SCH (18:00)
[2019-12-06] MEDS: *HR* Heparin 5,000 UNIT/ML VIAL SQ SCH (18:17)
[2019-12-06] MEDS ORDERED: Furosemide 20 MG/2 ML VIAL IVP ONE (19:34)
[2019-12-06 22:27] LABS: Thyroid Stimulating Hormone 1.731 mcIU/mL (0.340-5.600)
[2019-12-07 04:08] LABS: Basophils % 0.2 %; Eosinophils # 0.1 K/mcL (0.0-0.6); Eosinophils % 0.7 %; Hematocrit 23.6 % (37.5-50.1); Hemoglobin 7.5 g/dL (12.9-16.9); Lymphocytes # 1.7 K/mcL (0.6-4.6); Lymphocytes % 12.5 %; Mean Corpuscular HGB Conc 31.8 g/dL (31.6-35.5); Mean Corpuscular Hemoglobin 29.3 pg (28.0-33.3); Mean Corpuscular Volume 92.2 fL (83.0-100.0); Monocytes # 1.7 K/mcL (0.0-1.3); Monocytes % 12.6 %; Platelet Count 215 K/mcL (140-400); Red Blood Count 2.56 M/mcL (4.19-5.50); Red Cell Distribution Width 21.3 % (11.5-14.5); White Blood Count 13.7 K/mcL (4.3-11.1)
[2019-12-07 04:17] LABS: INR 1.4
[2019-12-07 04:26] LABS: % Iron Saturation 7 % (20-55); Iron 17 mcg/dL (65-175); Transferrin 167 mg/dL (203-362)
[2019-12-07 04:27] LABS: Albumin 2.6 g/dL (3.5-5.7); Albumin/Globulin Ratio 0.6 (1.1-2.2); Bilirubin,Total 0.8 mg/dL (0.3-1.0); Calcium 7.7 mg/dL (8.6-10.3); Globulin 4.4 g/dL (2.4-3.5); Potassium 4.4 mEq/L (3.5-5.1)
[2019-12-07 04:52] LABS: Folate 18.3 ng/mL (3.0-16.0)
[2019-12-07 04:54] LABS: Vitamin B12 > 1500 pg/mL (250-1100)
[2019-12-07] MEDS: D10% in Water 500 ML IVC SCH ×3 (05:09→17:35)
[2019-12-07] MEDS: *HR* Heparin 5,000 UNIT/ML VIAL SQ SCH ×2 (06:10→17:36)
[2019-12-07] MEDS: MetroNIDAZOLE 500 MG/100 ML 500 MG/100 ML BAG IVPB SCH ×2 (06:10→17:42)
[2019-12-07] MEDS ORDERED: 0.9 % Sodium Chloride 250 ML IVC PRN (07:07)
[2019-12-07] MEDS ORDERED: 0.9 % Sodium Chloride 1,000 ML PRIME SCH (07:15)
[2019-12-07] MEDS ORDERED: *HR* Heparin 10,000 UNIT/10 ML VIAL IV PRN (07:33)
[2019-12-07] MEDS: Methadone Oral Concentrate 50 MG/5 ML UDC PO SCH (08:27)
[2019-12-07] MEDS: Docusate Oral Soln 100 MG/10 ML UDC GTUBE SCH ×2 (08:27→20:28)
[2019-12-07] MEDS: clonazePAM 1 MG TABLET PO SCH ×3 (08:27→20:28)
[2019-12-07] MEDS: Sennosides/Docusate Sodium TABLET PO SCH (08:27)
[2019-12-07] MEDS: Budesonide/Formoterol 160/4.5 1 PUFF INH IH SCH ×2 (08:55→21:18)
[2019-12-07] MEDS ORDERED: Sennosides/Docusate Sodium TABLET PO SCH (09:00)
[2019-12-07] MEDS: Bisacodyl 10 MG RECTAL SUPPOSITORY RC SCH (11:21)
[2019-12-07] MEDS: ACYCLOVIR 5% TP SCH ×3 (13:54→21:15)
[2019-12-07] MEDS: Cefepime HCl 2,000 MG in Water for inj. (sterile) 20 ML IVP SCH (17:43)
[2019-12-07] MEDS ORDERED: Cefepime HCl 2,000 MG in Water for inj. (sterile) 20 ML IVP SCH (18:00)
[2019-12-08] MEDS: MetroNIDAZOLE 500 MG/100 ML 500 MG/100 ML BAG IVPB SCH (00:59)
[2019-12-08] MEDS: ACYCLOVIR 5% TP SCH ×6 (01:07→22:48)
[2019-12-08] MEDS: Melatonin 3 MG TABLET PO PRN ×2 (01:59→20:08)
[2019-12-08 02:24] LABS: Basophils % 0.2 %; Eosinophils # 0.1 K/mcL (0.0-0.6); Eosinophils % 0.9 %; Hematocrit 22.4 % (37.5-50.1); INR 1.4; Immature Granulocytes % 0.8 % (0-4); Lymphocytes # 1.8 K/mcL (0.6-4.6); Lymphocytes % 14.5 %; Mean Corpuscular HGB Conc 31.3 g/dL (31.6-35.5); Mean Corpuscular Hemoglobin 29.2 pg (28.0-33.3); Mean Corpuscular Volume 93.3 fL (83.0-100.0); Mean Platelet Volume 10.9 fL (9.4-12.4); Monocytes # 1.7 K/mcL (0.0-1.3); Monocytes % 13.7 %; Neutrophils # 8.8 K/mcL (1.6-8.9); Platelet Count 237 K/mcL (140-400); Prothrombin Time 16.2 Seconds (9.4-12.1); Red Cell Distribution Width 20.2 % (11.5-14.5); Segmented Neutrophils % 69.9 %; White Blood Count 12.6 K/mcL (4.3-11.1)
[2019-12-08 02:39] LABS: Albumin 2.6 g/dL (3.5-5.7); Albumin/Globulin Ratio 0.6 (1.1-2.2); Bilirubin,Total 0.8 mg/dL (0.3-1.0); Calcium 7.8 mg/dL (8.6-10.3); Globulin 4.6 g/dL (2.4-3.5); Total Protein 7.2 g/dL (6.4-8.9)
[2019-12-08] MEDS: D10% in Water 500 ML IVC SCH ×5 (04:10→22:47)
[2019-12-08] MEDS: *HR* Heparin 5,000 UNIT/ML VIAL SQ SCH ×2 (05:55→16:08)
[2019-12-08] MEDS ORDERED: *HR* Midazolam HCl 2 MG/2 ML VIAL IVP ONE (07:55)
[2019-12-08] MEDS ORDERED: *HR* FentaNYL (PF) 100 MCG/2 ML VIAL IVP ONE (07:55)
[2019-12-08] MEDS ORDERED: ceFAZolin 2,000 MG in 0.9 % Sodium Chloride 100 ML IVPB ONE (07:56)
[2019-12-08] MEDS ORDERED: Heparin 1,000 UNITS/500 mL 500 ML ONE (07:57)
[2019-12-08] MEDS ORDERED: 0.9 % Sodium Chloride 500 ML ONE (08:04)
[2019-12-08] MEDS ORDERED: *HR* Heparin 5,000 UNIT/ML VIAL ONE (08:28)
[2019-12-08] MEDS: Methadone Oral Concentrate 50 MG/5 ML UDC PO SCH (09:26)
[2019-12-08] MEDS: Docusate Oral Soln 100 MG/10 ML UDC PO SCH ×2 (09:28→20:09)
[2019-12-08] MEDS: metroNIDAZOLE 500 MG TABLET PO SCH ×3 (09:28→20:08)
[2019-12-08] MEDS: Sennosides/Docusate Sodium TABLET PO SCH (09:28)
[2019-12-08] MEDS: clonazePAM 1 MG TABLET PO SCH ×2 (09:28→14:54)
[2019-12-08] MEDS: Budesonide/Formoterol 160/4.5 1 PUFF INH IH SCH ×2 (09:48→19:57)
[2019-12-08] MEDS: Bisacodyl 10 MG RECTAL SUPPOSITORY RC SCH (11:51)
[2019-12-09 03:00] LABS: Basophils % 0.3 %; Eosinophils # 0.1 K/mcL (0.0-0.6); Eosinophils % 1.5 %; Hematocrit 21.7 % (37.5-50.1); Hemoglobin 6.8 g/dL (12.9-16.9); Immature Granulocytes % 0.6 % (0-4); Lymphocytes # 1.6 K/mcL (0.6-4.6); Lymphocytes % 16.9 %; Mean Corpuscular HGB Conc 31.3 g/dL (31.6-35.5); Mean Corpuscular Hemoglobin 29.1 pg (28.0-33.3); Mean Corpuscular Volume 92.7 fL (83.0-100.0); Mean Platelet Volume 10.5 fL (9.4-12.4); Monocytes # 1.5 K/mcL (0.0-1.3); Platelet Count 259 K/mcL (140-400); Red Blood Count 2.34 M/mcL (4.19-5.50); Red Cell Distribution Width 19.4 % (11.5-14.5); Segmented Neutrophils % 64.7 %; White Blood Count 9.3 K/mcL (4.3-11.1)
[2019-12-09 03:19] LABS: Calcium 8.4 mg/dL (8.6-10.3); Potassium 3.8 mEq/L (3.5-5.1)
[2019-12-09] MEDS: *HR* Heparin 5,000 UNIT/ML VIAL SQ SCH ×2 (05:08→16:57)
[2019-12-09] MEDS ORDERED: 0.9 % Sodium Chloride 250 ML IVC PRN (07:18)
[2019-12-09] MEDS: Budesonide/Formoterol 160/4.5 1 PUFF INH IH SCH ×2 (07:48→21:44)
[2019-12-09] MEDS: D10% in Water 500 ML IVC SCH (10:17)
[2019-12-09] MEDS: Methadone Oral Concentrate 50 MG/5 ML UDC PO SCH (11:30)
[2019-12-09] MEDS ORDERED: Water for inj. (sterile) 20 ML IV ONE (16:33)
[2019-12-09] MEDS: Cefepime HCl 2,000 MG in Water for inj. (sterile) 20 ML IVP SCH (16:53)
[2019-12-09] MEDS: clonazePAM 0.5 MG TABLET PO SCH ×3 (16:56→20:27)
[2019-12-09] MEDS: metroNIDAZOLE 500 MG TABLET PO SCH ×3 (16:56→20:27)
[2019-12-09] MEDS: Sennosides/Docusate Sodium TABLET PO SCH (16:57)
[2019-12-09] MEDS: Docusate Oral Soln 100 MG/10 ML UDC PO SCH ×2 (19:06→20:27)
[2019-12-09] MEDS: ACYCLOVIR 5% TP SCH ×3 (19:08→23:17)
[2019-12-10 05:35] LABS: Basophils # 0.1 K/mcL (0.0-0.2); Basophils % 0.5 %; Eosinophils # 0.1 K/mcL (0.0-0.6); Eosinophils % 1.3 %; Hematocrit 25.2 % (37.5-50.1); Hemoglobin 7.9 g/dL (12.9-16.9); Immature Granulocytes % 0.5 % (0-4); Lymphocytes # 1.4 K/mcL (0.6-4.6); Lymphocytes % 13.7 %; Mean Corpuscular HGB Conc 31.3 g/dL (31.6-35.5); Mean Corpuscular Hemoglobin 28.8 pg (28.0-33.3); Mean Platelet Volume 10.1 fL (9.4-12.4); Monocytes # 1.8 K/mcL (0.0-1.3); Monocytes % 16.8 %; Platelet Count 281 K/mcL (140-400); Red Blood Count 2.74 M/mcL (4.19-5.50); Red Cell Distribution Width 18.9 % (11.5-14.5); Segmented Neutrophils % 67.2 %; White Blood Count 10.5 K/mcL (4.3-11.1)
[2019-12-10] MEDS: D10% in Water 500 ML IVC SCH ×9 (05:42→23:48)
[2019-12-10] MEDS: *HR* Heparin 5,000 UNIT/ML VIAL SQ SCH ×2 (05:43→17:24)
[2019-12-10 05:45] LABS: Calcium 8.2 mg/dL (8.6-10.3); Potassium 3.6 mEq/L (3.5-5.1)
[2019-12-10] MEDS: Budesonide/Formoterol 160/4.5 1 PUFF INH IH SCH ×2 (07:45→21:07)
[2019-12-10] MEDS: Methadone Oral Concentrate 50 MG/5 ML UDC PO SCH (08:01)
[2019-12-10] MEDS: clonazePAM 0.5 MG TABLET PO SCH ×3 (08:03→20:58)
[2019-12-10] MEDS: metroNIDAZOLE 500 MG TABLET PO SCH (08:03)
[2019-12-10] MEDS: Docusate Oral Soln 100 MG/10 ML UDC PO SCH ×2 (08:03→20:58)
[2019-12-10] MEDS: Sennosides/Docusate Sodium TABLET PO SCH (08:03)
[2019-12-10] MEDS: ACYCLOVIR 5% TP SCH ×4 (21:01→21:05)
[2019-12-11] MEDS: ACYCLOVIR 5% TP SCH ×6 (00:02→23:19)
[2019-12-11 03:14] LABS: Hematocrit 24.5 % (37.5-50.1); Hemoglobin 7.8 g/dL (12.9-16.9); Mean Corpuscular HGB Conc 31.8 g/dL (31.6-35.5); Mean Corpuscular Hemoglobin 29.3 pg (28.0-33.3); Mean Corpuscular Volume 92.1 fL (83.0-100.0); Mean Platelet Volume 10.4 fL (9.4-12.4); Platelet Count 275 K/mcL (140-400); Red Blood Count 2.66 M/mcL (4.19-5.50); Red Cell Distribution Width 18.2 % (11.5-14.5); White Blood Count 8.9 K/mcL (4.3-11.1)
[2019-12-11 03:48] LABS: Calcium 8.7 mg/dL (8.6-10.3); Potassium 3.4 mEq/L (3.5-5.1)
[2019-12-11] MEDS: *HR* Heparin 5,000 UNIT/ML VIAL SQ SCH ×2 (05:48→18:15)
[2019-12-11] MEDS: Budesonide/Formoterol 160/4.5 1 PUFF INH IH SCH ×2 (08:09→19:53)
[2019-12-11] MEDS: D10% in Water 500 ML IVC SCH ×4 (09:08→23:19)
[2019-12-11] MEDS: Docusate Oral Soln 100 MG/10 ML UDC PO SCH ×2 (09:13→19:33)
[2019-12-11] MEDS: Acetaminophen 325 MG TABLET PO PRN (09:15)
[2019-12-11] MEDS: clonazePAM 0.5 MG TABLET PO SCH ×3 (09:15→19:33)
[2019-12-11] MEDS ORDERED: 0.9 % Sodium Chloride 1,000 ML PRIME SCH (09:15)
[2019-12-11] MEDS ORDERED: *HR* Heparin 10,000 UNIT/10 ML VIAL IV PRN (09:15)
[2019-12-11] MEDS ORDERED: 0.9 % Sodium Chloride 250 ML IVC PRN (09:15)
[2019-12-11] MEDS: Sennosides/Docusate Sodium TABLET PO SCH (09:15)
[2019-12-11] MEDS: Methadone Oral Concentrate 50 MG/5 ML UDC PO SCH (10:39)
[2019-12-12] MEDS: *HR* Heparin 5,000 UNIT/ML VIAL SQ SCH ×2 (03:58→17:40)
[2019-12-12 07:32] LABS: Hemoglobin 8.2 g/dL (12.9-16.9); Mean Corpuscular HGB Conc 31.5 g/dL (31.6-35.5); Mean Corpuscular Hemoglobin 29.9 pg (28.0-33.3); Mean Corpuscular Volume 94.9 fL (83.0-100.0); Platelet Count 273 K/mcL (140-400); Red Blood Count 2.74 M/mcL (4.19-5.50); Red Cell Distribution Width 17.9 % (11.5-14.5); White Blood Count 6.6 K/mcL (4.3-11.1)
[2019-12-12 07:53] LABS: Calcium 8.4 mg/dL (8.6-10.3); Potassium 3.4 mEq/L (3.5-5.1)
[2019-12-12] MEDS: Sennosides/Docusate Sodium TABLET PO SCH (08:06)
[2019-12-12] MEDS: Docusate Oral Soln 100 MG/10 ML UDC PO SCH ×2 (08:06→21:14)
[2019-12-12] MEDS: Methadone Oral Concentrate 50 MG/5 ML UDC PO SCH (08:06)
[2019-12-12] MEDS: clonazePAM 0.5 MG TABLET PO SCH ×2 (08:06→21:14)
[2019-12-12] MEDS: ACYCLOVIR 5% TP SCH ×4 (08:17→21:14)
[2019-12-12] MEDS: Budesonide/Formoterol 160/4.5 1 PUFF INH IH SCH ×2 (10:44→19:50)
[2019-12-12] MEDS: Acetaminophen 325 MG TABLET PO PRN (18:31)
[2019-12-12] MEDS: D10% in Water 500 ML IVC SCH (19:18)
[2019-12-12] MEDS: Melatonin 3 MG TABLET PO PRN (21:14)
[2019-12-13] MEDS: ACYCLOVIR 5% TP SCH ×5 (00:06→20:08)
[2019-12-13] MEDS: *HR* Heparin 5,000 UNIT/ML VIAL SQ SCH ×2 (06:17→16:25)
[2019-12-13 06:32] LABS: Hematocrit 25.3 % (37.5-50.1); Hemoglobin 7.9 g/dL (12.9-16.9); Mean Corpuscular HGB Conc 31.2 g/dL (31.6-35.5); Mean Corpuscular Hemoglobin 29.5 pg (28.0-33.3); Mean Corpuscular Volume 94.4 fL (83.0-100.0); Mean Platelet Volume 9.8 fL (9.4-12.4); Platelet Count 256 K/mcL (140-400); Red Blood Count 2.68 M/mcL (4.19-5.50); Red Cell Distribution Width 17.9 % (11.5-14.5); White Blood Count 6.1 K/mcL (4.3-11.1)
[2019-12-13 06:51] LABS: Calcium 8.5 mg/dL (8.6-10.3); Potassium 3.5 mEq/L (3.5-5.1)
[2019-12-13] MEDS: Docusate Oral Soln 100 MG/10 ML UDC PO SCH ×2 (09:00→20:01)
[2019-12-13] MEDS: Sennosides/Docusate Sodium TABLET PO SCH (09:00)
[2019-12-13] MEDS: Methadone Oral Concentrate 50 MG/5 ML UDC PO SCH (09:00)
[2019-12-13] MEDS: clonazePAM 0.5 MG TABLET PO SCH ×2 (09:00→20:01)
[2019-12-13 11:39] LABS: Total Volume 24 Hour,Urine 1.78 Liters (0.80-1.80)
[2019-12-13] MEDS: Budesonide/Formoterol 160/4.5 1 PUFF INH IH SCH ×2 (11:40→19:56)
[2019-12-13 11:58] LABS: Protein/Creatinine Ratio,Urine 3.61 mg/mg (0.00-0.20)
[2019-12-13] MEDS ORDERED: Ferumoxytol 510 MG in 0.9 % Sodium Chloride 100 ML IVPB ONE (14:08)
[2019-12-14] MEDS: *HR* Heparin 5,000 UNIT/ML VIAL SQ SCH ×2 (05:09→16:49)
[2019-12-14 07:03] LABS: Hematocrit 27.9 % (37.5-50.1); Hemoglobin 8.8 g/dL (12.9-16.9); Mean Corpuscular HGB Conc 31.5 g/dL (31.6-35.5); Mean Corpuscular Hemoglobin 30.2 pg (28.0-33.3); Mean Corpuscular Volume 95.9 fL (83.0-100.0); Platelet Count 266 K/mcL (140-400); Red Blood Count 2.91 M/mcL (4.19-5.50); Red Cell Distribution Width 17.6 % (11.5-14.5); White Blood Count 6.3 K/mcL (4.3-11.1)
[2019-12-14 07:22] LABS: Calcium 8.8 mg/dL (8.6-10.3); Potassium 3.6 mEq/L (3.5-5.1)
[2019-12-14] MEDS: Budesonide/Formoterol 160/4.5 1 PUFF INH IH SCH ×2 (08:01→19:41)
[2019-12-14] MEDS: Methadone Oral Concentrate 50 MG/5 ML UDC PO SCH (08:20)
[2019-12-14] MEDS: Docusate Oral Soln 100 MG/10 ML UDC PO SCH ×2 (08:22→20:02)
[2019-12-14] MEDS: ACYCLOVIR 5% TP SCH ×5 (08:22→20:03)
[2019-12-14] MEDS: clonazePAM 0.5 MG TABLET PO SCH ×2 (08:22→20:03)
[2019-12-14] MEDS: Sennosides/Docusate Sodium TABLET PO SCH (08:22)
[2019-12-15 00:12] LABS: Creatinine,Urine 33 mg/dL; Protein/Creatinine Ratio,Urine 1.79 mg/mg (0.00-0.20)
[2019-12-15] MEDS: *HR* Heparin 5,000 UNIT/ML VIAL SQ SCH (06:12)
[2019-12-15 07:20] LABS: Hematocrit 26.9 % (37.5-50.1); Hemoglobin 8.3 g/dL (12.9-16.9); Mean Corpuscular HGB Conc 30.9 g/dL (31.6-35.5); Mean Corpuscular Hemoglobin 29.7 pg (28.0-33.3); Mean Corpuscular Volume 96.4 fL (83.0-100.0); Mean Platelet Volume 9.7 fL (9.4-12.4); Platelet Count 271 K/mcL (140-400); Red Blood Count 2.79 M/mcL (4.19-5.50); Red Cell Distribution Width 17.7 % (11.5-14.5); White Blood Count 6.6 K/mcL (4.3-11.1)
[2019-12-15 07:36] LABS: Calcium 8.8 mg/dL (8.6-10.3)
[2019-12-15] MEDS: Budesonide/Formoterol 160/4.5 1 PUFF INH IH SCH (07:39)
[2019-12-15] MEDS: Methadone Oral Concentrate 50 MG/5 ML UDC PO SCH (07:46)
[2019-12-15] MEDS: clonazePAM 0.5 MG TABLET PO SCH (07:48)
[2019-12-15] MEDS: Docusate Oral Soln 100 MG/10 ML UDC PO SCH (07:48)
[2019-12-15] MEDS: Sennosides/Docusate Sodium TABLET PO SCH (07:48)
[2019-12-15] MEDS: ACYCLOVIR 5% TP SCH ×3 (07:48→11:35)
[2019-12-15 11:35] VITALS: BP 130/72
[2019-12-15 14:36] LABS: Total Volume 24 Hour,Urine 2.52 Liters (0.80-1.80)
== END 2019-12-15 15:07 | DRG 720 ==
LOC: EMEROOARM 11:02 → ICNU 14:49 → SUATTDRO 14:49 → ICNU 15:15 → 2ANU 12-07 16:53
PROVIDERS: ADMIT Pediatrics; ATTEND Internal Medicine
PROC: IRPERMA (2019-12-08 12:00)

== ENCOUNTER 2020-02-01 17:48 | Inpatient (IN) ==
[2020-02-01 19:08] LABS: Basophils % 0.2 %; Eosinophils # 0.1 K/mcL (0.0-0.6); Eosinophils % 1.4 %; Hematocrit 28.2 % (37.5-50.1); Hemoglobin 8.9 g/dL (12.9-16.9); Immature Granulocytes % 0.4 % (0-4); Lymphocytes # 1.2 K/mcL (0.6-4.6); Lymphocytes % 12.3 %; Mean Corpuscular HGB Conc 31.6 g/dL (31.6-35.5); Mean Corpuscular Hemoglobin 29.7 pg (28.0-33.3); Mean Platelet Volume 9.5 fL (9.4-12.4); Monocytes # 1.1 K/mcL (0.0-1.3); Monocytes % 11.1 %; Neutrophils # 7.6 K/mcL (1.6-8.9); Platelet Count 316 K/mcL (140-400); Red Cell Distribution Width 15.9 % (11.5-14.5); Segmented Neutrophils % 74.6 %; White Blood Count 10.1 K/mcL (4.3-11.1)
[2020-02-01 19:22] LABS: Calcium 8.9 mg/dL (8.6-10.3); Magnesium 2.6 mg/dL (1.6-2.6); Phosphorous 6.4 mg/dL (2.7-4.5)
[2020-02-01] MEDS ORDERED: Ondansetron 4 MG/2 ML VIAL IVP PRN (20:12)
[2020-02-01] MEDS ORDERED: Naloxone 0.4 MG/ML INJ IVP PRN (20:12)
[2020-02-01] MEDS: Sennosides/Docusate Sodium TABLET PO SCH (23:20)
[2020-02-02] MEDS ORDERED: 0.9 % Sodium Chloride 1,000 ML IVC SCH (00:15)
[2020-02-02 01:04] LABS: Basophils % 0.3 %; Eosinophils # 0.2 K/mcL (0.0-0.6); Eosinophils % 1.8 %; Hematocrit 27.6 % (37.5-50.1); Hemoglobin 8.5 g/dL (12.9-16.9); INR 1.1; Immature Granulocytes % 0.3 % (0-4); Lymphocytes # 1.4 K/mcL (0.6-4.6); Lymphocytes % 15.1 %; Mean Corpuscular HGB Conc 30.8 g/dL (31.6-35.5); Mean Corpuscular Hemoglobin 28.6 pg (28.0-33.3); Mean Corpuscular Volume 92.9 fL (83.0-100.0); Mean Platelet Volume 9.1 fL (9.4-12.4); Monocytes # 1.6 K/mcL (0.0-1.3); Monocytes % 16.4 %; Neutrophils # 6.2 K/mcL (1.6-8.9); Platelet Count 305 K/mcL (140-400); Prothrombin Time 12.5 Seconds (9.4-12.1); Red Blood Count 2.97 M/mcL (4.19-5.50); Red Cell Distribution Width 15.8 % (11.5-14.5); Segmented Neutrophils % 66.1 %; White Blood Count 9.4 K/mcL (4.3-11.1)
[2020-02-02 01:07] LABS: Activated Partial Thrombo Time 27.5 Seconds (26.0-36.0)
[2020-02-02 01:19] LABS: Calcium 8.6 mg/dL (8.6-10.3); Magnesium 2.5 mg/dL (1.6-2.6); Phosphorous 6.4 mg/dL (2.7-4.5); Potassium 4.7 mEq/L (3.5-5.1)
[2020-02-02] MEDS: *HR* Heparin 5,000 UNIT/ML VIAL SQ SCH ×3 (05:26→20:38)
[2020-02-02] MEDS ORDERED: 0.9 % Sodium Chloride 250 ML IVC PRN (07:13)
[2020-02-02] MEDS ORDERED: 0.9 % Sodium Chloride 1,000 ML PRIME SCH (07:15)
[2020-02-02] MEDS ORDERED: 0.9 % Sodium Chloride 500 ML ONE (08:53)
[2020-02-02] MEDS ORDERED: Lidocaine/EPI 1:100k 1% 50 ML VIAL ONE (08:53)
[2020-02-02] MEDS ORDERED: Gabapentin 300 MG CAPSULE PO SCH (09:00)
[2020-02-02] MEDS: Sennosides/Docusate Sodium TABLET PO SCH ×2 (09:10→20:35)
[2020-02-02] MEDS: Gabapentin 100 MG CAPSULE PO SCH ×2 (09:11→20:35)
[2020-02-02] MEDS ORDERED: Isovue-300 50ML VIAL IVP ONE (10:00)
[2020-02-02] MEDS ORDERED: *HR* Heparin 5,000 UNIT/ML VIAL ONE (10:04)
[2020-02-02 10:15] LABS: Hepatitis B Surface Antibody < 3.10 mIU/mL
[2020-02-02 10:26] LABS: Hepatitis B Surface Antigen Nonreactive (Nonreactive)
[2020-02-02] MEDS: Methadone Oral Concentrate 50 MG/5 ML UDC PO SCH (12:31)
[2020-02-02] MEDS ORDERED: *HR* Heparin 10,000 UNIT/10 ML VIAL IV PRN (16:09)
[2020-02-02] MEDS ORDERED: Acetaminophen IV 1,000 MG/100 ML INFUS..BTL IVPB ONE (22:17)
[2020-02-03] MEDS: *HR* Heparin 5,000 UNIT/ML VIAL SQ SCH ×3 (06:51→21:23)
[2020-02-03] MEDS ORDERED: 0.9 % Sodium Chloride 250 ML IVC PRN (07:06)
[2020-02-03] MEDS: Methadone Oral Concentrate 50 MG/5 ML UDC PO SCH (08:08)
[2020-02-03] MEDS: Sennosides/Docusate Sodium TABLET PO SCH ×2 (08:09→21:23)
[2020-02-03] MEDS: Gabapentin 100 MG CAPSULE PO SCH ×2 (08:09→21:22)
[2020-02-03] MEDS ORDERED: *HR* Heparin 10,000 UNIT/10 ML VIAL IV PRN (09:58)
[2020-02-03 11:50] LABS: Basophils % 0.4 %; Eosinophils # 0.2 K/mcL (0.0-0.6); Eosinophils % 2.6 %; Hematocrit 25.3 % (37.5-50.1); Immature Granulocytes % 0.4 % (0-4); Lymphocytes # 1.4 K/mcL (0.6-4.6); Lymphocytes % 16.8 %; Mean Corpuscular HGB Conc 31.6 g/dL (31.6-35.5); Mean Corpuscular Hemoglobin 29.7 pg (28.0-33.3); Mean Corpuscular Volume 94.1 fL (83.0-100.0); Monocytes # 1.2 K/mcL (0.0-1.3); Monocytes % 15.2 %; Neutrophils # 5.3 K/mcL (1.6-8.9); Platelet Count 261 K/mcL (140-400); Red Blood Count 2.69 M/mcL (4.19-5.50); Red Cell Distribution Width 15.7 % (11.5-14.5); Segmented Neutrophils % 64.6 %; White Blood Count 8.1 K/mcL (4.3-11.1)
[2020-02-03 12:10] LABS: Calcium 8.1 mg/dL (8.6-10.3); Potassium 3.6 mEq/L (3.5-5.1)
[2020-02-03] MEDS ORDERED: Acetaminophen IV 1,000 MG/100 ML INFUS..BTL IVPB ONE (19:51)
[2020-02-04] MEDS: *HR* Heparin 5,000 UNIT/ML VIAL SQ SCH ×2 (06:57→17:01)
[2020-02-04 07:49] LABS: Hematocrit 29.3 % (37.5-50.1); Hemoglobin 8.9 g/dL (12.9-16.9); Mean Corpuscular HGB Conc 30.4 g/dL (31.6-35.5); Mean Corpuscular Hemoglobin 28.5 pg (28.0-33.3); Mean Corpuscular Volume 93.9 fL (83.0-100.0); Mean Platelet Volume 8.8 fL (9.4-12.4); Platelet Count 272 K/mcL (140-400); Red Blood Count 3.12 M/mcL (4.19-5.50); Red Cell Distribution Width 15.7 % (11.5-14.5); Segmented Neutrophils % 61.9 %; White Blood Count 8.2 K/mcL (4.3-11.1)
[2020-02-04 07:50] LABS: Basophils % 0.4 %; Eosinophils # 0.2 K/mcL (0.0-0.6); Eosinophils % 2.6 %; Immature Granulocytes % 0.4 % (0-4); Lymphocytes # 1.6 K/mcL (0.6-4.6); Lymphocytes % 19.2 %; Monocytes # 1.3 K/mcL (0.0-1.3); Monocytes % 15.5 %; Neutrophils # 5.1 K/mcL (1.6-8.9)
[2020-02-04 07:56] LABS: Calcium 8.5 mg/dL (8.6-10.3); Potassium 3.8 mEq/L (3.5-5.1)
[2020-02-04] MEDS ORDERED: *HR* Heparin 10,000 UNIT/10 ML VIAL IV PRN ×2 (08:47)
[2020-02-04] MEDS ORDERED: 0.9 % Sodium Chloride 250 ML IVC PRN (08:47)
[2020-02-04] MEDS ORDERED: 0.9 % Sodium Chloride 1,000 ML PRIME SCH (09:00)
[2020-02-04] MEDS: Gabapentin 100 MG CAPSULE PO SCH ×2 (09:53→21:55)
[2020-02-04] MEDS: Sennosides/Docusate Sodium TABLET PO SCH ×2 (09:53→21:55)
[2020-02-04] MEDS: Methadone Oral Concentrate 50 MG/5 ML UDC PO SCH (09:53)
[2020-02-04] MEDS ORDERED: *HR* Alteplase (Cathflo) 2 MG VIAL IVP ONE (15:19)
[2020-02-05] MEDS: *HR* Heparin 5,000 UNIT/ML VIAL SQ SCH ×4 (04:13→19:50)
[2020-02-05] MEDS: Sennosides/Docusate Sodium TABLET PO SCH ×2 (09:10→19:50)
[2020-02-05] MEDS: Methadone Oral Concentrate 50 MG/5 ML UDC PO SCH (09:10)
[2020-02-05] MEDS: Gabapentin 100 MG CAPSULE PO SCH ×2 (09:10→19:48)
[2020-02-05 12:55] LABS: Basophils % 0.3 %; Eosinophils # 0.2 K/mcL (0.0-0.6); Eosinophils % 2.8 %; Hematocrit 28.8 % (37.5-50.1); Hemoglobin 9.1 g/dL (12.9-16.9); Immature Granulocytes % 0.5 % (0-4); Lymphocytes # 1.7 K/mcL (0.6-4.6); Lymphocytes % 19.5 %; Mean Corpuscular HGB Conc 31.6 g/dL (31.6-35.5); Mean Corpuscular Hemoglobin 29.9 pg (28.0-33.3); Mean Corpuscular Volume 94.7 fL (83.0-100.0); Mean Platelet Volume 8.8 fL (9.4-12.4); Monocytes # 1.1 K/mcL (0.0-1.3); Monocytes % 12.4 %; Neutrophils # 5.6 K/mcL (1.6-8.9); Platelet Count 253 K/mcL (140-400); Red Blood Count 3.04 M/mcL (4.19-5.50); Red Cell Distribution Width 15.5 % (11.5-14.5); Segmented Neutrophils % 64.5 %; White Blood Count 8.7 K/mcL (4.3-11.1)
[2020-02-05 13:11] LABS: Calcium 8.3 mg/dL (8.6-10.3); Potassium 3.9 mEq/L (3.5-5.1)
[2020-02-06 01:16] LABS: Basophils % 0.5 %; Eosinophils # 0.3 K/mcL (0.0-0.6); Eosinophils % 3.4 %; Hematocrit 27.7 % (37.5-50.1); Hemoglobin 8.6 g/dL (12.9-16.9); Immature Granulocytes % 0.5 % (0-4); Lymphocytes % 24.7 %; Mean Corpuscular Volume 93.3 fL (83.0-100.0); Mean Platelet Volume 8.8 fL (9.4-12.4); Monocytes # 1.2 K/mcL (0.0-1.3); Monocytes % 14.8 %; Neutrophils # 4.7 K/mcL (1.6-8.9); Platelet Count 266 K/mcL (140-400); Red Blood Count 2.97 M/mcL (4.19-5.50); Red Cell Distribution Width 15.6 % (11.5-14.5); Segmented Neutrophils % 56.1 %; White Blood Count 8.3 K/mcL (4.3-11.1)
[2020-02-06 01:38] LABS: Calcium 8.2 mg/dL (8.6-10.3); Potassium 3.8 mEq/L (3.5-5.1)
[2020-02-06] MEDS: *HR* Heparin 5,000 UNIT/ML VIAL SQ SCH ×3 (05:30→19:49)
[2020-02-06] MEDS: Gabapentin 100 MG CAPSULE PO SCH ×2 (09:09→19:48)
[2020-02-06] MEDS: Methadone Oral Concentrate 50 MG/5 ML UDC PO SCH (09:09)
[2020-02-06] MEDS: Sennosides/Docusate Sodium TABLET PO SCH ×2 (09:10→19:49)
[2020-02-06] MEDS: Acetaminophen 325 MG TABLET PO PRN (19:55)
[2020-02-07] MEDS: *HR* Heparin 5,000 UNIT/ML VIAL SQ SCH ×3 (05:08→20:21)
[2020-02-07 05:11] LABS: Basophils % 0.4 %; Eosinophils # 0.3 K/mcL (0.0-0.6); Eosinophils % 2.9 %; Hematocrit 30.4 % (37.5-50.1); Hemoglobin 9.4 g/dL (12.9-16.9); Immature Granulocytes % 0.6 % (0-4); Lymphocytes # 2.2 K/mcL (0.6-4.6); Lymphocytes % 23.2 %; Mean Corpuscular HGB Conc 30.9 g/dL (31.6-35.5); Mean Corpuscular Hemoglobin 29.6 pg (28.0-33.3); Mean Corpuscular Volume 95.6 fL (83.0-100.0); Mean Platelet Volume 8.8 fL (9.4-12.4); Monocytes # 1.3 K/mcL (0.0-1.3); Monocytes % 12.9 %; Neutrophils # 5.8 K/mcL (1.6-8.9); Platelet Count 262 K/mcL (140-400); Red Blood Count 3.18 M/mcL (4.19-5.50); Red Cell Distribution Width 15.8 % (11.5-14.5); White Blood Count 9.7 K/mcL (4.3-11.1)
[2020-02-07 05:24] LABS: Calcium 8.7 mg/dL (8.6-10.3); Potassium 4.2 mEq/L (3.5-5.1)
[2020-02-07] MEDS ORDERED: 0.9 % Sodium Chloride 250 ML IVC PRN (08:01)
[2020-02-07] MEDS ORDERED: *HR* Heparin 10,000 UNIT/10 ML VIAL IV PRN ×2 (08:01)
[2020-02-07] MEDS ORDERED: 0.9 % Sodium Chloride 1,000 ML PRIME SCH (08:15)
[2020-02-07] MEDS: Gabapentin 100 MG CAPSULE PO SCH ×2 (08:21→20:22)
[2020-02-07] MEDS: Methadone Oral Concentrate 50 MG/5 ML UDC PO SCH (08:21)
[2020-02-07] MEDS: Sennosides/Docusate Sodium TABLET PO SCH ×2 (08:24→20:22)
[2020-02-07] MEDS ORDERED: Lidocaine/EPI 1:100k 1% 50 ML VIAL ONE (09:26)
[2020-02-07] MEDS ORDERED: Heparin 1,000 UNITS/500 mL 500 ML ONE (09:26)
[2020-02-07] MEDS ORDERED: *HR* Midazolam HCl 2 MG/2 ML VIAL IVP ONE (09:51)
[2020-02-07] MEDS ORDERED: CeFAZolin 2,000 MG/50 ML BAG IVPB ONE (09:51)
[2020-02-07] MEDS ORDERED: 0.9 % Sodium Chloride 500 ML ONE (10:00)
[2020-02-07] MEDS ORDERED: *HR* Heparin 5,000 UNIT/ML VIAL ONE (10:32)
[2020-02-07] MEDS: Acetaminophen 325 MG TABLET PO PRN (18:05)
[2020-02-08] MEDS: *HR* Heparin 5,000 UNIT/ML VIAL SQ SCH (05:01)
[2020-02-08 07:23] VITALS: BP 117/73
[2020-02-08] MEDS: Gabapentin 100 MG CAPSULE PO SCH (08:00)
[2020-02-08] MEDS: Methadone Oral Concentrate 50 MG/5 ML UDC PO SCH (08:00)
[2020-02-08] MEDS: Sennosides/Docusate Sodium TABLET PO SCH (08:00)
[2020-02-08 09:24] LABS: Calcium 8.8 mg/dL (8.6-10.3); Potassium 4.5 mEq/L (3.5-5.1)
== END 2020-02-08 10:36 | disposition home or self-care (01) | DRG 470 ==
LOC: 2ANU 17:48 → EMEROOARM 17:48 → SUATTDRO 20:14 → 2ANU 20:26
PROVIDERS: ADMIT Family Medicine; ATTEND Internal Medicine
PROC: IRPERMA (2020-02-07 12:00)

== ENCOUNTER 2020-09-14 18:31 | Inpatient (IN) ==
[2020-09-14] MEDS ORDERED: *HR* FentaNYL (PF) 100 MCG/2 ML VIAL IVP ONE ×2 (19:35→20:57)
[2020-09-14 19:51] LABS: Basophils # 0.1 K/mcL (0.0-0.2); Basophils % 0.2 %; Eosinophils # 0.2 K/mcL (0.0-0.6); Eosinophils % 0.8 %; Hematocrit 33.3 % (37.5-50.1); Hemoglobin 10.3 g/dL (12.9-16.9); Immature Granulocytes % 0.7 % (0-4); Lymphocytes # 1.5 K/mcL (0.6-4.6); Lymphocytes % 6.7 %; Mean Corpuscular HGB Conc 30.9 g/dL (31.6-35.5); Mean Corpuscular Hemoglobin 30.6 pg (28.0-33.3); Mean Corpuscular Volume 98.8 fL (83.0-100.0); Mean Platelet Volume 9.5 fL (9.4-12.4); Monocytes % 9.4 %; Neutrophils # 17.8 K/mcL (1.6-8.9); Platelet Count 249 K/mcL (140-400); Red Blood Count 3.37 M/mcL (4.19-5.50); Red Cell Distribution Width 15.5 % (11.5-14.5); Segmented Neutrophils % 82.2 %; White Blood Count 21.6 K/mcL (4.3-11.1)
[2020-09-14 20:03] LABS: INR 1.2; Prothrombin Time 13.9 Seconds (9.4-12.1)
[2020-09-14] MEDS ORDERED: 0.9 % Sodium Chloride 1,000 ML IVC ONE ×2 (20:11→21:49)
[2020-09-14 20:12] LABS: Calcium 8.9 mg/dL (8.6-10.3); Potassium 4.3 mEq/L (3.5-5.1)
[2020-09-14 21:22] LABS: Bacteria,Urine Few per hpf (None-Few); Bilirubin,Urine Negative (Negative); Blood,Urine Small (Negative); Clarity,Urine Turbid (Clear); Color,Urine Light-Yellow (Yellow); Glucose,Urine (UA) Normal (Normal); Ketones,Urine Negative (Negative); Leukocyte Esterase,Urine Large (Negative); Nitrite,Urine Negative (Negative); PH,Urine 6.5 pH Units (5.0-8.0); Protein,Urine 30 mg/dL (Neg-Trace); RBC,Urine 15-30 per hpf (0-3); Specific Gravity,Urine 1.007 (1.010-1.025); Squamous Epithelial Cell,Urine Few per hpf (None-Few); Urobilinogen,Urine Normal (Normal); WBC,Urine TNTC per hpf (0-3)
[2020-09-14] MEDS ORDERED: Ondansetron 4 MG/2 ML VIAL IVP PRN (21:49)
[2020-09-14] MEDS ORDERED: Naloxone 0.4 MG/ML INJ IVP PRN (21:49)
[2020-09-14] MEDS ORDERED: *HR* Heparin 5,000 UNIT/ML VIAL SQ SCH (22:00)
[2020-09-14] MEDS: cefTRIAXone 1,000 MG in Water for inj. (sterile) 10 ML IVP SCH (23:25)
[2020-09-15 00:07] LABS: Albumin 3.8 g/dL (3.5-5.7); Albumin/Globulin Ratio 0.8 (1.1-2.2); Bilirubin,Indirect 0.3 mg/dL (0.0-1.0); Bilirubin,Total 0.3 mg/dL (0.3-1.0); Globulin 4.8 g/dL (2.4-3.5); Total Protein 8.6 g/dL (6.4-8.9)
[2020-09-15] MEDS: *HR* Heparin 5,000 UNIT/ML VIAL SQ SCH ×3 (00:21→16:27)
[2020-09-15] MEDS: Doxycycline 100 MG CAPSULE PO SCH ×3 (00:24→21:58)
[2020-09-15 01:16] LABS: Basophils # 0.1 K/mcL (0.0-0.2); Basophils % 0.2 %; Eosinophils % 0.2 %; Hematocrit 31.2 % (37.5-50.1); Hemoglobin 9.5 g/dL (12.9-16.9); Immature Granulocytes % 0.7 % (0-4); Lymphocytes # 1.3 K/mcL (0.6-4.6); Lymphocytes % 5.8 %; Mean Corpuscular HGB Conc 30.4 g/dL (31.6-35.5); Mean Platelet Volume 9.9 fL (9.4-12.4); Monocytes # 2.2 K/mcL (0.0-1.3); Monocytes % 10.2 %; Neutrophils # 17.7 K/mcL (1.6-8.9); Platelet Count 212 K/mcL (140-400); Red Blood Count 3.06 M/mcL (4.19-5.50); Red Cell Distribution Width 15.3 % (11.5-14.5); Segmented Neutrophils % 82.9 %; White Blood Count 21.4 K/mcL (4.3-11.1)
[2020-09-15 01:26] LABS: INR 1.3; Prothrombin Time 14.5 Seconds (9.4-12.1)
[2020-09-15 01:29] LABS: Activated Partial Thrombo Time 29.6 Seconds (26.0-36.0); Albumin 3.5 g/dL (3.5-5.7); Albumin/Globulin Ratio 0.8 (1.1-2.2); Bilirubin,Total 0.3 mg/dL (0.3-1.0); Globulin 4.2 g/dL (2.4-3.5); Phosphorous 3.9 mg/dL (2.7-4.5); Potassium 4.2 mEq/L (3.5-5.1); Total Protein 7.7 g/dL (6.4-8.9)
[2020-09-15] MEDS: cefTRIAXone 1,000 MG in Water for inj. (sterile) 10 ML IVP SCH (07:46)
[2020-09-15] MEDS ORDERED: Gabapentin 300 MG CAPSULE PO SCH (09:00)
[2020-09-15] MEDS ORDERED: 0.9 % Sodium Chloride 1,000 ML IVC ONE (11:29)
[2020-09-15] MEDS ORDERED: 0.9 % Sodium Chloride 250 ML IVC SCH ×2 (11:45→19:23)
[2020-09-15] MEDS ORDERED: *HR* FentaNYL (PF) 100 MCG/2 ML VIAL ONE (17:11)
[2020-09-15] MEDS ORDERED: *HR* Midazolam HCl 2 MG/2 ML VIAL ONE (17:11)
[2020-09-15] MEDS ORDERED: Lidocaine -MPF 2% 2 ML VIAL ONE (17:11)
[2020-09-15] MEDS ORDERED: Ondansetron 4 MG/2 ML VIAL ONE (17:11)
[2020-09-15] MEDS ORDERED: *HR* Propofol 200 MG/20 ML VIAL IVP ONE (17:11)
[2020-09-15] MEDS ORDERED: Clindamycin 900 MG/50 ML 900 MG/50 ML IV.SOLN IVPB ONE (17:15)
[2020-09-15] MEDS ORDERED: EPINEPHrine 1 MG/ML VIAL ONE (17:26)
[2020-09-15] MEDS ORDERED: *HR* HYDROMORPHONE 2 MG/ML VIAL ONE (17:47)
[2020-09-15] MEDS ORDERED: Ondansetron 4 MG/2 ML VIAL IVP PRN (18:03)
[2020-09-15] MEDS ORDERED: *HR* Labetalol 20 MG/4 ML SYRINGE IVP PRN (18:03)
[2020-09-15] MEDS ORDERED: *HR* HYDROcodone/Acet 5/325 mg TABLET PO PRN (18:03)
[2020-09-15] MEDS ORDERED: *HR* HYDROmorphone (PF) 1 MG/ML SYRINGE IVP PRN (18:07)
[2020-09-15] MEDS ORDERED: Naloxone 0.4 MG/ML INJ IVP PRN (19:23)
[2020-09-15] MEDS: Clindamycin 900 MG/50 ML 900 MG/50 ML IV.SOLN IVPB SCH (23:47)
[2020-09-16 05:46] LABS: Basophils % 0.1 %; Hematocrit 27.3 % (37.5-50.1); Hemoglobin 8.3 g/dL (12.9-16.9); Immature Granulocytes % 0.6 % (0-4); Lymphocytes # 1.2 K/mcL (0.6-4.6); Lymphocytes % 5.8 %; Mean Corpuscular HGB Conc 30.4 g/dL (31.6-35.5); Mean Corpuscular Hemoglobin 30.4 pg (28.0-33.3); Mean Platelet Volume 9.9 fL (9.4-12.4); Monocytes # 1.9 K/mcL (0.0-1.3); Monocytes % 9.1 %; Neutrophils # 17.2 K/mcL (1.6-8.9); Platelet Count 176 K/mcL (140-400); Red Blood Count 2.73 M/mcL (4.19-5.50); Red Cell Distribution Width 15.3 % (11.5-14.5); Segmented Neutrophils % 84.4 %; White Blood Count 20.3 K/mcL (4.3-11.1)
[2020-09-16 06:09] LABS: Albumin 3.1 g/dL (3.5-5.7); Calcium 8.3 mg/dL (8.6-10.3); Potassium 4.7 mEq/L (3.5-5.1)
[2020-09-16] MEDS: Aspirin Enteric Coated 325 MG Tablet PO SCH (08:46)
[2020-09-16] MEDS: Doxycycline 100 MG CAPSULE PO SCH (08:46)
[2020-09-16] MEDS: Clindamycin 900 MG/50 ML 900 MG/50 ML IV.SOLN IVPB SCH (08:48)
[2020-09-16] MEDS: cefTRIAXone 2,000 MG in Water for inj. (sterile) 10 ML IVP SCH (08:49)
[2020-09-16] MEDS ORDERED: cefTRIAXone 1,000 MG in Water for inj. (sterile) 10 ML IVP SCH (09:00)
[2020-09-16 13:21] LABS: Amorphous Sediment,Urine Few per hpf (None-Few); Bacteria,Urine Few per hpf (None-Few); Bilirubin,Urine Negative (Negative); Blood,Urine Small (Negative); Clarity,Urine Turbid (Clear); Color,Urine Light-Yellow (Yellow); Glucose,Urine (UA) Normal (Normal); Ketones,Urine Negative (Negative); Leukocyte Esterase,Urine Large (Negative); Mucus,Urine Few per lpf (None-Few); Nitrite,Urine Negative (Negative); PH,Urine 5.5 pH Units (5.0-8.0); Protein,Urine Trace mg/dL (Neg-Trace); Specific Gravity,Urine 1.006 (1.010-1.025); Urobilinogen,Urine Normal (Normal); WBC,Urine TNTC per hpf (0-3)
[2020-09-16 13:49] LABS: Sodium, Urine 54.2 mEq/L
[2020-09-17 01:04] LABS: Basophils % 0.1 %; Eosinophils # 0.1 K/mcL (0.0-0.6); Eosinophils % 0.4 %; Hematocrit 28.5 % (37.5-50.1); Immature Granulocytes % 0.7 % (0-4); Lymphocytes # 1.5 K/mcL (0.6-4.6); Lymphocytes % 8.4 %; Mean Corpuscular HGB Conc 31.6 g/dL (31.6-35.5); Mean Corpuscular Hemoglobin 30.4 pg (28.0-33.3); Mean Corpuscular Volume 96.3 fL (83.0-100.0); Mean Platelet Volume 9.5 fL (9.4-12.4); Monocytes # 2.2 K/mcL (0.0-1.3); Monocytes % 12.5 %; Platelet Count 186 K/mcL (140-400); Red Blood Count 2.96 M/mcL (4.19-5.50); Red Cell Distribution Width 14.9 % (11.5-14.5); Segmented Neutrophils % 77.9 %
[2020-09-17 01:22] LABS: Calcium 8.3 mg/dL (8.6-10.3); Potassium 4.5 mEq/L (3.5-5.1); Uric Acid 6.6 mg/dL (2.3-7.6)
[2020-09-17 01:24] LABS: % Iron Saturation 10 % (20-55); Iron 17 mcg/dL (65-175); Transferrin 125 mg/dL (203-362)
[2020-09-17 02:31] LABS: Hepatitis B Surface Antigen Nonreactive (Nonreactive)
[2020-09-17 03:00] LABS: Hepatitis B Core IgM Nonreactive (Nonreactive)
[2020-09-17 03:01] LABS: Hepatitis A Antibody IgM Nonreactive (Nonreactive); Hepatitis C Virus Antibody Nonreactive (Nonreactive)
[2020-09-17] MEDS ORDERED: 0.9 % Sodium Chloride 1,000 ML IVC SCH (08:00)
[2020-09-17] MEDS: Ondansetron 4 MG/2 ML VIAL IVP PRN ×2 (08:59→17:10)
[2020-09-17] MEDS: cefTRIAXone 2,000 MG in Water for inj. (sterile) 10 ML IVP SCH (09:02)
[2020-09-17] MEDS: Aspirin Enteric Coated 325 MG Tablet PO SCH (09:03)
[2020-09-17] MEDS ORDERED: Ferumoxytol 510 MG in 0.9 % Sodium Chloride 100 ML IVPB ONE (12:39)
[2020-09-17] MEDS: Cholecalciferol (D-3) 1,000 UNIT (25MCG) TABLET PO SCH (13:30)
[2020-09-18 06:18] LABS: Basophils % 0.2 %; Eosinophils % 0.2 %; Hematocrit 27.8 % (37.5-50.1); Hemoglobin 8.7 g/dL (12.9-16.9); Immature Granulocytes % 0.4 % (0-4); Lymphocytes # 1.1 K/mcL (0.6-4.6); Lymphocytes % 10.4 %; Mean Corpuscular HGB Conc 31.3 g/dL (31.6-35.5); Mean Corpuscular Volume 95.9 fL (83.0-100.0); Mean Platelet Volume 9.6 fL (9.4-12.4); Monocytes # 1.8 K/mcL (0.0-1.3); Monocytes % 17.3 %; Neutrophils # 7.4 K/mcL (1.6-8.9); Platelet Count 194 K/mcL (140-400); Red Cell Distribution Width 14.4 % (11.5-14.5); Segmented Neutrophils % 71.5 %; White Blood Count 10.3 K/mcL (4.3-11.1)
[2020-09-18 06:30] LABS: Calcium 8.2 mg/dL (8.6-10.3); Potassium 4.1 mEq/L (3.5-5.1)
[2020-09-18] MEDS: cefTRIAXone 2,000 MG in Water for inj. (sterile) 10 ML IVP SCH (08:11)
[2020-09-18] MEDS: Cholecalciferol (D-3) 1,000 UNIT (25MCG) TABLET PO SCH (08:12)
[2020-09-18] MEDS: Aspirin Enteric Coated 325 MG Tablet PO SCH (08:12)
[2020-09-18] MEDS ORDERED: Methadone Oral Concentrate 50 MG/5 ML UDC PO SCH (11:15)
[2020-09-18 11:32] VITALS: BP 116/67
== END 2020-09-18 15:42 | disposition home health service (06) | DRG 308 ==
LOC: 3NENU 18:31 → EMEROOARM 18:31 → 3NENU 22:36
PROVIDERS: ADMIT Family Medicine; ATTEND Family Medicine

== ENCOUNTER 2021-11-24 00:26 | Inpatient (IN) ==
[2021-11-24 01:08] LABS: Hematocrit 44.6 % (37.5-50.1); Hemoglobin 14.8 g/dL (12.9-16.9); Mean Corpuscular HGB Conc 33.2 g/dL (31.6-35.5); Mean Corpuscular Hemoglobin 30.4 pg (28.0-33.3); Mean Corpuscular Volume 91.6 fL (83.0-100.0); Mean Platelet Volume 9.5 fL (9.4-12.4); Platelet Count 374 K/mcL (140-400); Red Blood Count 4.87 M/mcL (4.19-5.50); Red Cell Distribution Width 14.1 % (11.5-14.5)
[2021-11-24 01:13] LABS: White Blood Count 55.2 K/mcL (4.3-11.1)
[2021-11-24 01:33] LABS: Eosinophils # 1.1 K/mcL (0.0-0.6); Lymphocytes # 4.4 K/mcL (0.6-4.6); Monocytes # 2.2 K/mcL (0.0-1.3); Neutrophils # 47.5 K/mcL (1.6-8.9); Platelet Estimate Normal (Normal)
[2021-11-24 01:42] LABS: Alanine Aminotransferase 15 Units/L (7-52); Albumin 3.1 g/dL (3.5-5.7); Albumin/Globulin Ratio 0.8 (1.1-2.2); Alkaline Phosphatase 183 Units/L (34-104); Aspartate Amino Transferase 27 Units/L (13-39); BUN/Creatinine Ratio 28 (6-26); Bilirubin,Direct 0.5 mg/dL (0.0-0.2); Bilirubin,Indirect 0.7 mg/dL (0.0-1.0); Bilirubin,Total 1.2 mg/dL (0.3-1.0); Blood Urea Nitrogen 82 mg/dL (6-20); Calcium 7.7 mg/dL (8.6-10.3); Carbon Dioxide 9 mEq/L (23-29); Chloride 90 mEq/L (98-107); Globulin 3.9 g/dL (2.4-3.5); Glucose 110 mg/dL (70-105); Lipase 12 Units/L (11-82); Osmolality,Calculated 283 (280-300); Sodium 124 mEq/L (136-145); eGFR For African Americans 27 (> 60); eGFR For Non-African Americans 22 (> 60)
[2021-11-24] MEDS ORDERED: 0.9 % Sodium Chloride 2,000 ML ONE (02:17)
[2021-11-24] MEDS ORDERED: cefTRIAXone 1,000 MG in Water for inj. (sterile) 10 ML IVP ONE (02:21)
[2021-11-24] MEDS ORDERED: 0.9 % Sodium Chloride 1,000 ML IV ONE ×4 (02:22→22:44)
[2021-11-24 02:38] LABS: INR 1.4; Prothrombin Time 15.4 Seconds (9.4-12.1)
[2021-11-24 02:41] LABS: Activated Partial Thrombo Time 39.2 Seconds (26.0-36.0)
[2021-11-24 02:47] LABS: Bilirubin,Urine Negative (Negative); Blood,Urine Negative (Negative); Clarity,Urine Clear (Clear); Color,Urine Yellow (Yellow); Glucose,Urine (UA) Normal (Normal); Ketones,Urine Negative (Negative); Leukocyte Esterase,Urine Trace (Negative); Mucus,Urine Few per lpf (None-Few); Nitrite,Urine Negative (Negative); Protein,Urine 30 mg/dL (Neg-Trace); RBC,Urine 0-3 per hpf (0-3); Specific Gravity,Urine 1.018 (1.010-1.025); Squamous Epithelial Cell,Urine Few per hpf (None-Few); WBC,Urine 0-3 per hpf (0-3)
[2021-11-24 02:51] LABS: Adenovirus Not Detected (Not Detect); Bordetella Pertussis Not Detected (Not Detect); Chlamydophila pneumoniae Not Detected (Not Detect); Coronavirus 229E Not Detected (Not Detect); Coronavirus HKU1 Not Detected (Not Detect); Coronavirus NL63 Not Detected (Not Detect); Coronavirus OC43 Not Detected (Not Detect); Human Metapneumovirus Not Detected (Not Detect); Human Rhinovirus/Enterovirus Not Detected (Not Detect); Influenza A Subtype 2009 H1 Not Detected (Not Detect); Influenza B Not Detected (Not Detect); Mycoplasma pneumoniae Not Detected (Not Detect); Parainfluenza Virus 1 Not Detected (Not Detect); Parainfluenza Virus 2 Not Detected (Not Detect); Parainfluenza Virus 3 Not Detected (Not Detect); Parainfluenza Virus 4 Not Detected (Not Detect); Respiratory Syncytial Virus Not Detected (Not Detect); SARS-CoV-2 Not Detected (Not Detect)
[2021-11-24 02:52] LABS: Amphetamine Screen,Urine Negative ng/mL (Cutoff=1000); Barbiturate Screen,Urine Negative ng/mL (Cutoff=200); Benzodiazepines Screen,Urine Negative ng/mL (Cutoff=200); Cannabinoid Screen,Urine Negative ng/mL (Cutoff = 50); Cocaine Screen,Urine Negative ng/mL (Cutoff= 300); Opiate Screen,Urine Negative ng/mL (Cutoff=300); Phencyclidine Screen,Urine Negative ng/mL (Cutoff=25)
[2021-11-24 03:16] LABS: Acetaminophen < 10 mcg/mL (10-20); Creatine Kinase 52 Units/L (30-223); Ethanol < 10 mg/dL (Less than 10); Salicylate < 2.5 mg/dL (15.0-30.0)
[2021-11-24 03:31] LABS: VBG HCO3 9 mEq/L (21-27); VBG PCO2 47 mmHg (41-51); VBG PH 6.89 pH Units (7.32-7.42); VBG PO2 246 mmHg (25-50)
[2021-11-24] MEDS ORDERED: Sodium Bicarbonate 50 MEQ/50 ML VIAL IVP ONE (03:40)
[2021-11-24] MEDS ORDERED: MetroNIDAZOLE 500 MG/100 ML 500 MG/100 ML BAG IVPB ONE (03:40)
[2021-11-24 03:43] LABS: Troponin I 0.04 ng/mL (< 0.04)
[2021-11-24 03:50] LABS: ABG Base Excess -22 mEq/L (-2 to 3); ABG HCO3 10 mEq/L (21-27); ABG Oxygen Saturation 100 % (95-98); ABG PCO2 48 mmHg (35-45); ABG PH 6.92 pH Units (7.32-7.45); ABG PO2 599 mmHg (85-104); ABG TCO2 11 mEq/L (20-26)
[2021-11-24] MEDS ORDERED: Pantoprazole 40 MG VIAL IVP ONE (04:17)
[2021-11-24] MEDS ORDERED: Naloxone 0.4 MG/ML INJ IVP PRN (04:25)
[2021-11-24] MEDS ORDERED: Ringers Solution, Lactated 1,000 ML IVC ONE ×2 (04:48→07:53)
[2021-11-24] MEDS ORDERED: Sodium Bicarbonate 150 MEQ in Water for inj. (sterile) 1,000 ML IVC SCH ×2 (05:15→06:00)
[2021-11-24 06:33] LABS: Creatinine,Urine 39 mg/dL
[2021-11-24 07:13] LABS: Nucleated Red Blood Cells 0.1 /100 WBC (0); Red Cell Distribution Width 14.4 % (11.5-14.5)
[2021-11-24 07:15] LABS: Hematocrit 28.4 % (37.5-50.1); Hemoglobin 9.2 g/dL (12.9-16.9); Mean Corpuscular HGB Conc 32.4 g/dL (31.6-35.5); Mean Corpuscular Hemoglobin 30.8 pg (28.0-33.3); Mean Platelet Volume 9.6 fL (9.4-12.4); Platelet Count 206 K/mcL (140-400); Red Blood Count 2.99 M/mcL (4.19-5.50)
[2021-11-24 07:24] LABS: White Blood Count 36.5 K/mcL (4.3-11.1)
[2021-11-24 07:25] LABS: Albumin 1.5 g/dL (3.5-5.7); Albumin/Globulin Ratio 0.8 (1.1-2.2); Bilirubin,Total 0.7 mg/dL (0.3-1.0); Calcium 5.7 mg/dL (8.6-10.3); Globulin 1.8 g/dL (2.4-3.5); Potassium 4.8 mEq/L (3.5-5.1); Total Protein 3.3 g/dL (6.4-8.9)
[2021-11-24] MEDS: Pantoprazole 40 MG in 0.9 % Sodium Chloride Mini Bag 100 ML IVC SCH ×4 (07:26→23:08)
[2021-11-24] MEDS ORDERED: *HR* Rocuronium Bromide 50 MG/5 ML VIAL IVP ONE (07:30)
[2021-11-24] MEDS ORDERED: *HR* Etomidate 40 MG/20 ML VIAL IVP ONE (07:30)
[2021-11-24 07:44] LABS: ABG Base Excess -17 mEq/L (-2 to 3); ABG HCO3 13 mEq/L (21-27); ABG Oxygen Saturation 100 % (95-98); ABG PCO2 47 mmHg (35-45); ABG PH 7.06 pH Units (7.32-7.45); ABG PO2 259 mmHg (85-104); ABG TCO2 15 mEq/L (20-26); Blood Gas VT 450 cc
[2021-11-24] MEDS ORDERED: Calcium Chloride 2,000 MG in 0.9 % Sodium Chloride 100 ML IVPB ONE ×2 (07:52→16:56)
[2021-11-24 07:57] LABS: Lymphocytes # 2.2 K/mcL (0.6-4.6); Monocytes # 2.9 K/mcL (0.0-1.3); Neutrophils # 29.2 K/mcL (1.6-8.9); Platelet Estimate Normal (Normal)
[2021-11-24] MEDS ORDERED: Cefepime HCl 2,000 MG in 0.9 % Sodium Chloride 10 ML IVP SCH (08:00)
[2021-11-24] MEDS: Norepinephrine 4 MG/254 ML IV.SOLN IVC SCH ×7 (09:15→23:35)
[2021-11-24 09:58] LABS: ABG Base Excess -17 mEq/L (-2 to 3); ABG HCO3 10 mEq/L (21-27); ABG Oxygen Saturation 100 % (95-98); ABG PCO2 29 mmHg (35-45); ABG PH 7.16 pH Units (7.32-7.45); ABG PO2 211 mmHg (85-104); ABG TCO2 11 mEq/L (20-26)
[2021-11-24] MEDS: Sodium Bicarbonate 150 MEQ in D5% in Water 1,000 ML IVC SCH ×2 (11:00→18:51)
[2021-11-24] MEDS ORDERED: *HR* Dextrose 50 % in Water (Syg) 50 ML SYRINGE ONE (11:16)
[2021-11-24] MEDS ORDERED: Dextrose Gel 15 GM/37.5 ML TUBE PO PRN ×2 (11:27)
[2021-11-24] MEDS ORDERED: D5% in Water 1,000 ML IVC PRN (11:27)
[2021-11-24 11:32] LABS: VBG Ionized Calcium 0.93 mmol/L (1.15-1.35)
[2021-11-24 11:36] LABS: Hemoglobin 13.1 g/dL (12.9-16.9); Mean Corpuscular Hemoglobin 30.1 pg (28.0-33.3); Mean Corpuscular Volume 94.3 fL (83.0-100.0); Mean Platelet Volume 9.7 fL (9.4-12.4); Nucleated Red Blood Cells 0.1 /100 WBC (0); Platelet Count 277 K/mcL (140-400); Red Blood Count 4.35 M/mcL (4.19-5.50); Red Cell Distribution Width 14.6 % (11.5-14.5)
[2021-11-24 11:42] LABS: White Blood Count 42.5 K/mcL (4.3-11.1)
[2021-11-24] MEDS: Vancomycin Oral Soln 125 MG/2.5 ML UDC PO SCH ×3 (11:47→20:06)
[2021-11-24] MEDS: MetroNIDAZOLE 500 MG/100 ML 500 MG/100 ML BAG IVPB SCH ×2 (11:47→20:05)
[2021-11-24] MEDS: Milk and Molasses Enema 200 ML RC SCH ×2 (11:49→20:06)
[2021-11-24 11:51] LABS: Calcium 7.6 mg/dL (8.6-10.3); Potassium 5.8 mEq/L (3.5-5.1)
[2021-11-24 11:56] LABS: Albumin 2.3 g/dL (3.5-5.7); Albumin/Globulin Ratio 0.8 (1.1-2.2); Bilirubin,Direct 0.4 mg/dL (0.0-0.2); Bilirubin,Indirect 0.8 mg/dL (0.0-1.0); Bilirubin,Total 1.2 mg/dL (0.3-1.0); Globulin 2.9 g/dL (2.4-3.5); Magnesium 2.9 mg/dL (1.6-2.6); Phosphorous 10.1 mg/dL (2.7-4.5); Total Protein 5.2 g/dL (6.4-8.9)
[2021-11-24] MEDS ORDERED: 0.9 % Sodium Chloride 1,000 ML IVC ONE (12:12)
[2021-11-24] MEDS: Calcium Gluconate 1gm/50mL 1 GM/50 ML BAG IVPB SCH ×2 (12:19→13:35)
[2021-11-24 12:59] LABS: Lymphocytes # 2.6 K/mcL (0.6-4.6); Monocytes # 3.4 K/mcL (0.0-1.3); Neutrophils # 34.9 K/mcL (1.6-8.9)
[2021-11-24 13:00] LABS: Platelet Estimate Normal (Normal)
[2021-11-24] MEDS ORDERED: Dexmedetomidine HCl 400 MCG/100 ML MLS IVC SCH (14:15)
[2021-11-24] MEDS: FentaNYL (PF) 1,000 MCG/100 ML IV.SOLN IVC SCH ×2 (14:22→21:39)
[2021-11-24] MEDS: Albumin Human 5% 12.5 GM/250 ML IV.SOLN IVC SCH ×2 (15:53→17:15)
[2021-11-24 16:49] LABS: VBG Ionized Calcium 0.87 mmol/L (1.15-1.35)
[2021-11-24 17:11] LABS: Potassium 5.6 mEq/L (3.5-5.1)
[2021-11-24 17:13] LABS: ABG Base Excess -23 mEq/L (-2 to 3); ABG HCO3 7 mEq/L (21-27); ABG Oxygen Saturation 98 % (95-98); ABG PCO2 28 mmHg (35-45); ABG PH 7.01 pH Units (7.32-7.45); ABG PO2 162 mmHg (85-104); ABG TCO2 8 mEq/L (20-26)
[2021-11-24] MEDS ORDERED: Calcium Chloride 2,000 MG in 0.9 % Sodium Chloride 250 ML IVPB ONE (17:15)
[2021-11-24] MEDS ORDERED: Iopamidol - 370 500 ML MLS IVP ONE (17:29)
[2021-11-24 17:35] LABS: Magnesium 2.8 mg/dL (1.6-2.6); Phosphorous 9.4 mg/dL (2.7-4.5)
[2021-11-24] MEDS ORDERED: Artificial Tears SOLN 15 ML BOTTLE BOTH EYES PRN (17:58)
[2021-11-24] MEDS ORDERED: Cefepime HCl 1,000 MG in 0.9 % Sodium Chloride 10 ML IVP SCH (20:00)
[2021-11-24] MEDS: *HR* Dextrose 50 % in Water (Syg) 50 ML SYRINGE IVP PRN ×3 (20:01→23:34)
[2021-11-24] MEDS: Artificial Tears SOLN 15 ML BOTTLE BOTH EYES SCH ×2 (20:05→23:10)
[2021-11-24 20:30] LABS: Calcium 9.1 mg/dL (8.6-10.3); Potassium 5.2 mEq/L (3.5-5.1)
[2021-11-24] MEDS ORDERED: Chlorhexidine Rinse 15 ML MOUTHWASH MM SCH (21:00)
[2021-11-25] MEDS: Norepinephrine 4 MG/254 ML IV.SOLN IVC SCH ×3 (00:55→04:10)
[2021-11-25] MEDS ORDERED: 0.9 % Sodium Chloride 1,000 ML ONE (01:41)
[2021-11-25] MEDS: Sodium Bicarbonate 150 MEQ in D5% in Water 1,000 ML IVC SCH (02:47)
[2021-11-25 02:59] LABS: VBG Ionized Calcium 0.74 mmol/L (1.15-1.35)
[2021-11-25] MEDS ORDERED: Calcium Chloride 2,000 MG in 0.9 % Sodium Chloride 100 ML IVPB ONE (03:18)
[2021-11-25 03:35] VITALS: TEMP 98.1
[2021-11-25] MEDS: Pantoprazole 40 MG in 0.9 % Sodium Chloride Mini Bag 100 ML IVC SCH (04:08)
[2021-11-25] MEDS: Artificial Tears SOLN 15 ML BOTTLE BOTH EYES SCH (04:08)
[2021-11-25] MEDS: MetroNIDAZOLE 500 MG/100 ML 500 MG/100 ML BAG IVPB SCH (04:09)
[2021-11-25] MEDS: *HR* Dextrose 50 % in Water (Syg) 50 ML SYRINGE IVP PRN ×2 (04:13→04:14)
[2021-11-25 04:17] LABS: ABG Base Excess -22 mEq/L (-2 to 3); ABG HCO3 9 mEq/L (21-27); ABG Oxygen Saturation 96 % (95-98); ABG PCO2 42 mmHg (35-45); ABG PH 6.94 pH Units (7.32-7.45); ABG PO2 132 mmHg (85-104); ABG TCO2 10 mEq/L (20-26); Blood Gas Modality AF; Blood Gas VT 450 cc
[2021-11-25 05:36] VITALS: BP 47/35; O2SAT 96
[2021-11-25 05:38] VITALS: PULSE 61
[2021-11-26 07:31] LABS: mecA/C Methicillin-Resist Gene DETECTED (Not Detect)
[2021-11-26 07:32] LABS: A.calcoaceticus-baumannii cplx Not Detected (Not Detect); Bacteroides fragilis by PCR Not Detected (Not Detect); Candida albicans by PCR Not Detected (Not Detect); Candida auris by PCR Not Detected (Not Detect); Candida glabrata by PCR Not Detected (Not Detect); Candida krusei by PCR Not Detected (Not Detect); Candida parapsilosis by PCR Not Detected (Not Detect); Candida tropicalis by PCR Not Detected (Not Detect); Crypto. neoformans/gattii PCR Not Detected (Not Detect); Enterobacter cloacae Cmplx PCR Not Detected (Not Detect); Enterobacterales by PCR Not Detected (Not Detect); Enterococcus faecalis by PCR Not Detected (Not Detect); Enterococcus faecium by PCR Not Detected (Not Detect); Escherichia coli by PCR Not Detected (Not Detect); Klebs. pneumoniae group by PCR Not Detected (Not Detect); Klebsiella aerogenes by PCR Not Detected (Not Detect); Klebsiella oxytoca by PCR Not Detected (Not Detect); Proteus by PCR Not Detected (Not Detect); Pseudomonas aeruginosa by PCR Not Detected (Not Detect); Salmonella species by PCR Not Detected (Not Detect); Serratia marcescens by PCR Not Detected (Not Detect); Staph epidermidis by PCR DETECTED (Not Detect); Staph lugdunensis by PCR Not Detected (Not Detect); Staphylococcus aureus by PCR Not Detected (Not Detect); Stenotrophomonas maltophilia Not Detected (Not Detect); Streptococcus agalactiae(B)PCR Not Detected (Not Detect); Streptococcus by PCR Not Detected (Not Detect); Streptococcus pneumoniae PCR Not Detected (Not Detect); Streptococcus pyogenes (A) PCR Not Detected (Not Detect)
== END 2021-11-25 07:31 | disposition expired | DRG 720 ==
LOC: EMEROOARM 00:26 → ICNU 05:33
PROVIDERS: ADMIT Family Medicine; ATTEND Family Medicine